=== PATIENT | male | born 1930 | race Caucasian/White ===

== ENCOUNTER 2017-01-03 13:26 | Inpatient (IN) | payer OTHER, MEDICARE ==
[~2017-01-03] VITALS: Ht 175.3 cm; Wt 85.3 kg
[~2017-01-03 13:26] MED LIST: ARICEPT10 M1 PO; ASPIRIN CHILDRE81 MG PO; CIPRO 500MG TA500 MG PO; CLARITIN10 MG PO; CLONAZEPAM1 M2 PO; COMBIVENT1 ARO PO; DEPAKOTE250 M1 PO; ELIQUIS2.5 MG PO; FLOMAX0.4 M1 PO; HYDRODIURIL 112.5 M1 PO; LISINOPRIL10 M1 PO; MOBIC15 MG PO; NASONEX17 GM NASB; TYLENOL ARTHRI650 M1 PO; ZOCOR20 M1 PO; [UNRECOGNIZED DRUG - OTHER] PO
--- NOTE | 2017-01-03 13:33 | ED GI/GU/ABDOMINAL COMPLAINT ---
History of Present Illness General Chief Complaint: General Adult Stated Complaint: BIBA LOW H&H AND +GUIAIC Source: patient Exam Limitations: no limitations Allergies Coded Allergies: NO KNOWN ALLERGIES (06/30/12) Triage Nurses Notes Reviewed? yes HPI: This patient is an 86-year-old male with past medical history including spinal stenosis and idiopathic hematuria who presented to the emergency department today brought in by ambulance from [facility] for evaluation of low H&H and blood in the stool. They performed a stool guaiac this morning as he had a dark bowel movement. It was heme positive. Hemoglobin was below 7. Hematocrit was below 20. They reported that the patient is pale and slightly lethargic. The patient is denying any focal pain. He denied any vomiting, nausea, abdominal pain, fevers, chills, chest pain, or difficulty breathing. The patient's daughter is currently at the bedside. She reported that this morning when they were palpating his abdomen he was not complaining of any pain. (RAUL JOHN,BARBARA) Vital Signs & Intake/Output Vital Signs & Intake/Output Vital Signs Date Time Temp Pulse Resp B/P B/P Pulse O2 O2 Flow FiO2 Mean Ox Delivery Rate 01/05 2246 98.5 69 20 170/60 95 Room Air 01/05 1935 178/78 01/05 1840 186/100 01/05 1831 166/80 01/05 1530 166/80 01/05 1428 97.8 70 20 180/80 98 Room Air 01/05 1402 180/80 01/05 0700 98.0 64 20 156/61 100 Room Air ED Intake and Output 01/05 0000 01/04 1200 Intake Total 1970 Output Total 1000 1400 Balance 970 -1400 Intake, Blood 350 Product Intake, IV 900 Intake, Oral 720 Number 0 Bowel Movements Output, Urine 1000 1400 Patient 188 lb Weight Reconcile Medications Acetaminophen (Tylenol Arthritis) 650 MG TABLET.ER 1 TAB PO BID PAIN ( Reported) Cetirizine HCl (Zyrtec) 10 MG TABLET 1 TAB PO DAILY ALLERGIES (Reported) Clonazepam 1 MG TABLET 1 TAB PO QPM RESTLESS LEGS (Reported) Clonazepam (Klonopin) 1 MG TABLET 1 TAB PO BEDTIME PRN seizure (Reported) Divalproex Sodium (Depakote) 250 MG TABLET.DR 1 TAB PO TID SEIZURES (Reported ) Donepezil HCl (Aricept) 10 MG TABLET 1 TAB PO QPM MEMORY (Reported) Gabapentin 300 MG CAPSULE 1 CAP PO BID UNKNOWN (Reported) Lidocaine 5 % ADH..PATCH 1 PAT TOP DAILY PAIN (Reported) Lisinopril 10 MG TABLET 1 TAB PO DAILY BP (Reported) Mometasone Furoate (Nasonex) 50 MCG SPRAY.PUMP 2 SPRAY NASB DAILY ALLERGIES ( Reported) Omeprazole 40 MG CAPSULE.DR 1 CAP PO BID GI prophylaxis Simvastatin (Zocor*) 20 MG TABLET 1 TAB PO QPM CHOLESTEROL (Reported) Tamsulosin HCl (Flomax) 0.4 MG CAP.ER.24H 1 CAP PO DAILY PROSTATE (Reported) (GALINDO SRINIVASAN,CEDRIC) Past History Travel History Traveled to [place] past 21 day No Medical History Any Pertinent Medical History? see below for history Cardiovascular: hypertension, hyperlipidemia Respiratory: pneumonia Renal: hematuria, recurrent urinary tract infections Musculoskeletal: spinal stenosis Other Medical Hx: His resident data she shows a seizure disorder, hypertension, degenerative joint disease, chronic low back pain, melanoma and squamous cell carcinoma, restless leg syndrome, high cholesterol, UTIs with sepsis, pneumonia History of MRSA: No History of VRE: No History of CDIFF: No Pneumonia Vaccine: 05/22/07 Influenza Vaccine: 05/29/13 Surgical History Surgical History: non-contributory Psychosocial History Who do you live with Patient/Self Services at Home Nursing What is your primary language Venezuelan Family History Family History, If Any: MOTHER FH: dementia FH: hypertension FATHER FH: hypertension BROTHER FH: seizures Hx Contributory? No (BARBARA CARTER PA-C) Review of Systems Review of Systems Constitutional: Reports: no symptoms. EENTM: Reports: no symptoms. Respiratory: Reports: no symptoms. Cardiovascular: Reports: no symptoms. GI: Reports: see HPI. Genitourinary: Reports: no symptoms. Musculoskeletal: Reports: see HPI. Skin: Reports: no symptoms. Neurological/Psychological: Reports: no symptoms. All Other Systems: Reviewed and Negative (BARBARA CARTER PA-C) Physical Exam Physical Exam Gastrointestinal: normal bowel sounds, soft, non-tender, no organomegaly, no rebound or guarding. No McBurney's point tenderness. Negative Lowe sign. No pulsatile mass, nondistended Comments: Well-developed well-nourished person in no acute distress HEENT: Normal EENT exam, head normocephalic, moist mucous membranes PERRLA bilaterally Neck: Supple, no lymphadenopathy Back: Normal inspection Cardiovascular: Regular rate and rhythm with no murmurs, rubs, or gallops Respiratory: No respiratory distress. Breath sounds clear to auscultation bilaterally with no wheezes, rales, or rhonchi Extremity: Normal equal pulses Neuro: Alert oriented x3, cranial nerves II through XII grossly intact. Skin: No appreciable rash on exposed skin, skin is warm and dry. pallor noted Psych: Mood and affect is normal, memory and judgment is normal. Core Measures ACS in differential dx? Yes Severe Sepsis Present: No Septic Shock Present: No (RAUL JOHN,BARBARA) Progress Differential Diagnosis: AAA, AMI, appendicitis, biliary colic, bowel obstruction , colon cancer, cholecystitis, diverticulitis, gastritis, hepatitis, ischemic bowel, inflamm bowel dis, pancreatitis, PUD/GERD, perforated viscous, UTI/pyelo Plan of Care: Orders Procedure Date/time Status Nothing by Mouth 01/03 D Active LACTIC ACID 01/03 1632 Active Patient Data 01/03 1433 Active BLOOD PRODUCT PICKUP 01/03 1430 Active Admit to inpatient 01/03 1427 Active Vital Signs 01/03 1427 Active Code Status 01/03 1427 Active LEUKOCYTE POOR (PACKED CELLS) 01/03 1413 Active MISTAKE 01/03 1338 Active BLOOD CULTURE 01/03 1332 Active TROPONIN LEVEL 01/03 1332 Complete PARTIAL THROMBOPLASTIN TIME 01/03 1332 Complete PROTHROMBIN TIME 01/03 1332 Complete LACTIC ACID 01/03 1332 Complete COMPREHENSIVE METABOLIC PANEL 01/03 1332 Complete CBC WITHOUT DIFFERENTIAL 01/03 1332 Complete EKG 01/03 1332 Active TYPE & SCREEN (NOT X-MATCH) 01/03 1332 Active Current Medications Sig/Alcon Start time Last Medication Dose Stop Time Status Admin Pantoprazole Sodium 40 MG ONCE ONE 01/03 1430 UNVr (Protonix) 01/03 1929 Sodium Chloride 100 ML (Normal Saline 0.9%) Sodium Chloride 1,000 ML BOLUS ONE 01/03 1345 AC 01/03 (Normal Saline 0.9%) 01/03 1444 1400 Laboratory Tests 01/03/17 1341: Anion Gap 11, Estimated GFR 44 L, BUN/Creatinine Ratio 40.7 H, Glucose 110 H, Lactic Acid 1.3, Calcium 9.1, Total Bilirubin 0.2, AST 14 L, ALT 14 L, Alkaline Phosphatase 59, Troponin I 0.04, Total Protein 6.1 L, Albumin 3.1 L, Globulin 3.0, Albumin/Globulin Ratio 1.0 L, PT 12.7 H, INR 1.21 H, APTT 42 H , CBC w Diff NO MAN DIFF REQ, RBC 2.28 L, MCV 92.8, MCH 31.4 H, RDW 14.7 H, MPV 7.8, Gran % 58.1, Lymphocytes % 23.3, Monocytes % 13.9 H, Eosinophils % 3.8 , Basophils % 0.9, Absolute Granulocytes 3.8, Absolute Lymphocytes 1.5, Absolute Monocytes 0.9 H, Absolute Eosinophils 0.3, Absolute Basophils 0.1, PUBS MCHC 33.8 Microbiology 01/03 1425 BLOOD: Blood Culture - RECD 01/03 1405 BLOOD: Blood Culture - RECD Patient seen and exained with VIJAY Carter. Low H/H, hemodynamically stable. Will admit to general medical floor for transfusion. (GALINDO SRINIVASAN,CEDRIC) Diagnostic Imaging: Viewed by Me: Radiology Read. Discussed w/RAD: Radiology Read. CXR Impression: PATIENT: KAEL ECHEVARRIA PRESENT AGE: 86 PATIENT ACCOUNT NO: [id number] : 31 LOCATION: [facility] ORDERING PHYSICIAN: BARBARA CARTER PA-C SERVICE DATE: 01/03/17 EXAM TYPE: RAD - XRY- PORTABLE CHEST XRAY EXAMINATION: XR PORTABLE CHEST CLINICAL INFORMATION: Weakness; clinical question of pneumonia. COMPARISON: Prior chest radiographs, most recently 04/28/2014. TECHNIQUE: Portable frontal view of the chest was obtained. FINDINGS: The heart, great vessels, pulmonary vasculature and mediastinum are stable. There is atherosclerotic change of the aortic knob. There is stable mild to moderate right base linear scar/subsegmental atelectasis. No new infiltrate, effusion or pneumothorax is seen. There is no acute osseous abnormality. IMPRESSION: 1. No active cardiopulmonary disease. There is no significant interim change. 2. There is chronic mild to moderate right base linear scar/subsegmental atelectasis. DICTATED BY: KAEL BOND MD DATE/TIME DICTATED:01/03/171403 YARN SPOOLER:JOHANA DATE/TIME TRANSCRIBED:01/03/171403 CONFIDENTIAL, DO NOT COPY WITHOUT APPROPRIATE AUTHORIZATION. <Electronically signed in Other Vendor System> SIGNED BY: KAEL BOND MD 01/03/17 7871 Initial ED EKG: normal axis, normal intervals, normal sinus rhythm, no ST T wave changes, 65 bpm Comments: 01/03/2017 1:37:54 PM: Dr. Holman is currently at the patient's bedside for evaluation. 01/03/2017 4:44:09 PM: I discussed this patient with on-call cottage supervisor, Dr. Darden. He reported that he will be at the patient's bedside to consult. (BARBARA CARTER PA-C) Departure Departure Disposition: STILL A PATIENT Condition: Stable Clinical Impression Primary Impression: Upper GI bleed Secondary Impressions: Low hemoglobin and low hematocrit Referrals: YASMANI SRINIVASAN,MERY Barrera (PCP/Family) Departure Forms: Customer Survey General Discharge Information Admission Note Spoke With: KEM FARMER MD Documentation of Exam: Documentation of any treatments & extenuating circumstances including Concerns Regarding Discharge (functional status, medication knowledge or non-compliance, living conditions, etc.) that warrant an admission rather than observation: [ This patient is an 86-year-old male with a past medical history including atrial fibrillation, dementia, spinal stenosis, hypertension who presented to the emergency department today for evaluation of low H&H and dark tarry, heme positive stool. H&H 7 and 20 respectively. Pallor noted on physical examination. This patient will need to be admitted for blood transfusion, trend H&H, follow-up blood cultures, gastroenterology consultation, possible colonoscopy/endoscopy, serial troponin levels, serial EKGs, and close monitoring. Premature discharge could prove medically harmful.] (BARBARA CARTER PA-C) Departure Prescriptions: Current Visit Scripts Omeprazole 1 CAP PO BID 30 Days PA/MANAGER [employer] Co-Sign Statement Statement: ED Attending supervision documentation- [X] I saw and evaluated the patient. I have also reviewed all the pertinent lab results and diagnostic results. I agree with the findings and the plan of care as documented in the PA's/MANAGER COMPANY's documentation. [X] I have reviewed the ED Record and agree with the PA's/MANAGER COMPANY's documentation. [] Additions or exceptions (if any) to the PAs/MANAGER COMPANY's note and plan are summarized below: [] (GALINDO SRINIVASAN,CEDRIC)
[2017-01-03 13:50] LABS: ABSOLUTE GRANULOCYTE CT 3.8 /CUMM (1.4-6.5)
[2017-01-03] MEDS ORDERED: ZYRTEC10 M3 PO (13:54)
[2017-01-03] MEDS ORDERED: MOBIC15 M1 PO (13:55)
[2017-01-03] MEDS ORDERED: ELIQUIS2.5 M1 PO (13:57)
[2017-01-03] MEDS ORDERED: GABAPENTIN300 M2 PO (13:58)
[2017-01-03 13:59] LABS: ABSOLUTE BASOPHIL COUNT 0.1 /CUMM (0.0-0.2); ABSOLUTE EOSINOPHIL COUNT 0.3 /CUMM (0.0-0.7); ABSOLUTE LYMPH COUNT 1.5 /CUMM (1.2-3.4); ABSOLUTE MONOCYTE COUNT 0.9 /CUMM (0.10-0.60); BASOPHIL % 0.9 % (0.0-2.0); EOSINOPHIL % 3.8 % (0-5); GRANULOCYTE % 58.1 % (42.2-75.2); MEAN CORPUSCULAR HGB 31.4 PG (27.0-31.0); MEAN CORPUSCULAR HGB CONC 33.8 G/DL (33.0-37.0); MEAN CORPUSCULAR VOLUME 92.8 FL (80.0-94.0); MEAN PLATELET VOLUME 7.8 FL (7.4-10.4); PLATELET COUNT 138 /CUMM (130-400); RBC DISTRIBUTION WIDTH 14.7 % (11.5-14.5); RED BLOOD CELL CT 2.28 /CUMM (4.70-6.10); WHITE BLOOD CELL COUNT 6.6 /CUMM (4.8-10.8)
[2017-01-03 14:00] LABS: PT 12.7 SEC (9.4-12.5); PTT 42 SEC (25-37)
[2017-01-03] MEDS ORDERED: LIDOCAINE1 EACH TOP (14:02)
[2017-01-03 14:07] LABS: HEMATOCRIT 21.1 % (42-52)
--- NOTE | 2017-01-03 14:09 | RADIOLOGY REPORT ---
EXAMINATION: XR PORTABLE CHEST CLINICAL INFORMATION: Weakness; clinical question of pneumonia. COMPARISON: Prior chest radiographs, most recently 04/28/2014. TECHNIQUE: Portable frontal view of the chest was obtained. FINDINGS: The heart, great vessels, pulmonary vasculature and mediastinum are stable. There is atherosclerotic change of the aortic knob. There is stable mild to moderate right base linear scar/subsegmental atelectasis. No new infiltrate, effusion or pneumothorax is seen. There is no acute osseous abnormality. IMPRESSION: 1. No active cardiopulmonary disease. There is no significant interim change. 2. There is chronic mild to moderate right base linear scar/subsegmental atelectasis.
--- NOTE | 2017-01-03 16:19 | History & Physical ---
JULIUSRIDDHI 01/03/17 2609: General Information and HPI MD Statement: I have seen and personally examined KAEL ECHEVARRIA and documented this H&P. The patient is a 86 year old M who presented with a patient stated chief complaint of dark stools generalized weakness and malaise Source of Information: patient, family Exam Limitations: patient's age History of Present Illness: Patient is a 86-year-old gentleman with a past medical history significant for chronic back pain due to spinal stenosis(on mobic), recurrent urinary tract infections on chronic indwelling catheter since 2016, history of atrial fibrillation on Alquist 2.5 mg twice a day, history of recurrent falls, history of hypertension and hyperlipidemia, history of seizure disorder, presented to the ED from [facility] for the evaluation of generalized weakness /malaise with dark stools. According to the facility patient had a very dark 6 stool at around 4 AM today, stool guaiac was positive. Since morning patient has not been feeling well, remained on the bed most of the time. Also complained of weakness / malaise with lightheadedness. Denied any chest discomfort or trouble breathing palpitations.Denies any fever or chills. Patient denied any nausea vomiting diarrhea or constipation. The facility called the daughter and updated her. H&H checked at the facility was 6.7/19.7 .Afterwards they decided to bring the patient to the ED for further evaluation. Of the note patient was recently moved to [facility], since November 2016, as he was having recurrent falls at [facility]. Patient had a remote history of colonoscopy in mid , that was normal. Patient has been following with Dr. Thomas due to recurrent urinary tract infection, has a chronic indwelling Chavez catheter since 2016(replaced every month). In the ED, patient looked pale and lethargic, vitals were stable his H&H was found to be low: 7.1/21, received 1 unit of packed RBC and. Did not have any further episodes of dark stools/GI bleed. Allergies/Medications Allergies: Coded Allergies: NO KNOWN ALLERGIES (06/30/12) Home Med list Acetaminophen (Tylenol Arthritis) 650 MG TABLET.ER 1 TAB PO BID PAIN ( Reported) Apixaban (Eliquis) 2.5 MG TABLET 1 TAB PO BID BLOOD THINNER (Reported) Cetirizine HCl (Zyrtec) 10 MG TABLET 1 TAB PO DAILY ALLERGIES (Reported) Clonazepam (Klonopin) 1 MG TABLET 1 TAB PO BEDTIME PRN seizure (Reported) Clonazepam 1 MG TABLET 1 TAB PO QPM RESTLESS LEGS (Reported) Divalproex Sodium (Depakote) 250 MG TABLET.DR 1 TAB PO TID SEIZURES (Reported ) Donepezil HCl (Aricept) 10 MG TABLET 1 TAB PO QPM MEMORY (Reported) Gabapentin 300 MG CAPSULE 1 CAP PO BID UNKNOWN (Reported) Lidocaine 5 % ADH..PATCH 1 PAT TOP DAILY PAIN (Reported) Lisinopril 10 MG TABLET 1 TAB PO DAILY BP (Reported) Meloxicam (Mobic) 15 MG TABLET 1 TAB PO DAILY PAIN (Reported) Mometasone Furoate (Nasonex) 50 MCG SPRAY.PUMP 2 SPRAY NASB DAILY ALLERGIES ( Reported) Simvastatin (Zocor*) 20 MG TABLET 1 TAB PO QPM CHOLESTEROL (Reported) Tamsulosin HCl (Flomax) 0.4 MG CAP.ER.24H 1 CAP PO DAILY PROSTATE (Reported) Past History Travel History Traveled to [place] past 21 day No Medical History Neurological: dementia EENT: NONE Cardiovascular: AFIB, hypertension, hyperlipidemia Respiratory: pneumonia Gastrointestinal: NONE Hepatic: NONE Renal: benign prost hyperplasia, hematuria recurrent urinary tract infections Musculoskeletal: spinal stenosis Psychiatric: NONE Endocrine: NONE Blood Disorders: NONE Cancer(s): NONE Other Medical Hx: His resident data she shows a seizure disorder, hypertension, degenerative joint disease, chronic low back pain, melanoma and squamous cell carcinoma, restless leg syndrome, high cholesterol, UTIs with sepsis, pneumonia History of MRSA: No History of VRE: No History of CDIFF: No Pneumonia Vaccine: 05/22/07 Influenza Vaccine: 05/29/13 Surgical History Surgical History: non-contributory Past Family/Social History Family History Relations & Conditions if any MOTHER FH: dementia FH: hypertension FATHER FH: hypertension BROTHER FH: seizures Psychosocial History Services at Home: Nursing Review of Systems Review of Systems Constitutional: Reports: malaise, weakness. Denies: chills, diaphoresis, fever. EENTM: Denies: blurred vision, double vision, visual changes. Cardiovascular: Denies: see HPI, chest pain, edema, orthopena, palpitations. Respiratory: Denies: cough, hemoptysis, orthopnea, short of breath. GI: Denies: bloating, constipation, diarrhea, distention. Genitourinary: Denies: discharge, dysuria, frequency. Musculoskeletal: Denies: back pain, joint pain, joint swelling. Skin: Denies: change in skin color, change in hair/nails, dryness. Neurological/Psychological: Denies: ataxia, cognitive dysfunction, confusion. Hematologic/Endocrine: Denies: bruising, bleeding. Exam & Diagnostic Data Last 24 Hrs of Vital Signs/I&O Vital Signs Date Time Temp Pulse Resp B/P B/P Pulse O2 O2 Flow FiO2 Mean Ox Delivery Rate 01/03 1516 97.7 64 18 139/61 98 Room Air 01/03 1510 97.4 66 18 137/65 98 Room Air 01/03 1509 97.5 81 18 153/67 98 Room Air 01/03 1428 98 Room Air 01/03 1334 97.0 67 20 133/63 99 Room Air Intake & Output 01/03 1600 01/03 0800 01/03 0000 Intake Total Output Total 20 Balance -20 Output, Urine 20 Patient 170 lb Weight Weight Reported by Patient Measurement Method Physical Exam General Appearance Alert, Oriented X3 Skin No Rashes Skin Temp/Moisture Exam: Warm/Dry Sepsis Skin Exam (color): Pale HEENT Atraumatic, PERRLA, EOMI Neck Supple, No JVD Lymphatic Axillary nl, Cervical nl Cardiovascular Regular Rate, Normal S1, Normal S2 Lungs Clear to Auscultation, Normal Air Movement Abdomen Normal Bowel Sounds, Soft Neurological Normal Gait, Normal Speech Extremities No Clubbing, No Cyanosis, No Edema Vascular Normal Pulses, Pulses Symmetrical Last 24 Hrs of Labs/Ranjeet: Laboratory Tests 01/03/17 1632: Lactic Acid Cancelled 01/03/17 1341: Anion Gap 11, Estimated GFR 44 L, BUN/Creatinine Ratio 40.7 H, Glucose 110 H, Lactic Acid 1.3, Calcium 9.1, Total Bilirubin 0.2, AST 14 L, ALT 14 L, Alkaline Phosphatase 59, Troponin I 0.04, Total Protein 6.1 L, Albumin 3.1 L, Globulin 3.0, Albumin/Globulin Ratio 1.0 L, PT 12.7 H, INR 1.21 H, APTT 42 H , CBC w Diff NO MAN DIFF REQ, RBC 2.28 L, MCV 92.8, MCH 31.4 H, RDW 14.7 H, MPV 7.8, Gran % 58.1, Lymphocytes % 23.3, Monocytes % 13.9 H, Eosinophils % 3.8 , Basophils % 0.9, Absolute Granulocytes 3.8, Absolute Lymphocytes 1.5, Absolute Monocytes 0.9 H, Absolute Eosinophils 0.3, Absolute Basophils 0.1, PUBS MCHC 33.8 Microbiology 01/03 1425 BLOOD: Blood Culture - RECD 01/03 1405 BLOOD: Blood Culture - RECD Diagnostic Data EKG Results EKG: Normal sinus rhythm heart rate in the range of 60s, NJ prolongation 180, QTC 437, with blood axis deviation. CXR Results :No active cardiopulmonary disease. There is no significant interim change. There is chronic mild to moderate right base linear scar/subsegmental atelectasis Assessment/Plan Assessment: And is she is in 1 This is a 86-year-old gentleman with a past medical history significant for spinal stenosis, recurrent urinary tract infections on chronic indwelling catheter since 2016, history of atrial fibrillation on Alquist 2.5 mg twice a day, history of recurrent falls, history of hypertension and hyperlipidemia, history of seizure disorder, presented to the ED from [facility] for the evaluation of generalized weakness /malaise with dark stools. In the ED, patient looked pale and lethargic, vitals were stable his H&H was found to be low: 7.1/21, received 1 unit of packed RBC and. Did not have any further episodes of dark stools/GI bleed. Vitals on admission temperature 97.0, pulse 67, respiratory rate 20, blood pressure 133/63 on room air Pertinent labs on admission: Normal WBC count ,H&H low(7.1/21),elevated BUN/creatinine 61/1.5, INR 1.21, APTT 42. Assessment and plan: 1. Acute on chronic blood loss anemia due to probable upper GI bleed(hx of mobic use?gastritis/ulcer): * As patient appears clinically stable, without any active signs of complete Will admit the patient to the GenMed floor * GI consult with Dr. Alma SRINIVASAN has been obtained as per recommendations we'll start the patient on IV Protonix drip. * We will do serial CBC every 8 hours * Watch for any active signs of bleed * Keep the patient nothing by mouth for now * Continue with gentle hydration * Keep the hemoglobin above 8. * Will notify GI in case of overt signs of bleed. * hold antihypertensives for now, watch for any hemodynamic instability. * Hold home dose of mobic * Patient will likely go for endoscopy in the morning. 2. History of atrial fibrillation(currently in sinus rhythm) * Will hold elliquis for now. 3. History of seizure disorders * Continue home medications including Depakote and gabapentin. 4. History of hypertension and lipidemia: * continue with statins. * Hold antihypertensives for now. 5. History of recurrent urinary tract infection on chronic indwelling catheter * Consider starting Flomax in the morning. 6.history of Alzheimer's disease * Continue home dose of Aricept Mild to moderate pain controlled with Tylenol and severe pain controlled with oxycodone DVT prophylaxis Alps Patient is DNR/DNI as per living will As Ranked By This Provider Problem List: 1. Upper GI bleed 2. Fall 3. Dementia Core Measures/Miscellaneous Acute Coronary Syndrome ACS Diagnosis: No Cerebrovascular Accident CVA/TIA Diagnosis: No Congestive Heart Failure CHF Diagnosis: No Venous Thromboembolism VTE Risk Factors: Acute medical illness, Age > 40 No [facility] VTE prophylaxis d/t: VTE low risk, No contraindications No VTE Pharm Prophylaxis d/t: VTE low risk, No contraindications VTE Diagnosis: No VTE Type: NONE VTE Confirmed by (Test): NONE Severe Sepsis Severe Sepsis Present: No Septic Shock Septic Shock Present: No Miscellaneous Documentation Attending Case Discussed With: SARAH CRUZ M.D Primary Care Physician: MERY GRUBER MD Patient sees these Specialists Dr. Alma SRINIVASAN. Level of Patient Care: General Medicine Resident Review Statement Resident Statement: examined this patient, discussed with music industry intern, agreed with music industry intern SARAH CRUZ MD 01/03/17 2220: Attending MD Review Statement Attending Statement Attending MD Statement: examined this patient, discuss w/resident/PA/DRAWING SUPERVISOR, agreed w/resident/PA/DRAWING SUPERVISOR, discussed with family, reviewed EMR data (avail), discussed with nursing, amended to note Attending Assessment/Plan: Patient seen and examined. Reviewed and agree with history of physical is documented by the resident above. Presented presentation is consistent with acute blood loss anemia secondary to gastrointestinal bleeding likely from upper gastrointestinal source. Is currently hemodynamically stable. He is alert and oriented 3 with periods of confusion which is baseline according to his family. He denies any abdominal pain. His abdomen is soft and nontender with normal bowel sounds. Recommendations: -Admit to the inpatient general medical service. -Hold anticoagulation and notify the cardiology service. -Following transfusion of PRBC repeat hemoglobin level. -He Is scheduled for upper endoscopy tomorrow with the gastroenterology service. -His renal function appears close to baseline. Will monitor closely. -Keep nothing by mouth. Gentle hydration overnight.-
--- NOTE | 2017-01-03 17:36 | Cons- Gastroenterology ---
General Information and HPI Consulting Request Date of Consult: 01/03/17 Requested By: SARAH CRUZ M.D Reason for Consult: Anemia, reported melena (currently brown stool, OB-positive), in an elderly male with OBS, on Eliquis & Mobic. Source of Information: patient, family (pt's dtr, Shirley & LIEN/JORDY,Luiz), old records, W10 Exam Limitations: unable to give history, not alert/orientated, confusion, dementia, poor historian History of Present Illness: 86 y/o male, HTN/HLD/OBS (on Aricept)/PAF on Eliquis (reportedly held on 2016; currently in NSR)/DNR DNI, history of mechanical falls, ? 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 He previously lived at [facility], but was moved to [facility] [place] in 11/2016, due to recurrent falls. He was BIBA to [facility] from [facility] 01/03, arriving at 1:26 p.m., for low H/H 6.7/19.7, respectively. The patient's stool appeared dark and was OB-positive at [facility] [place]. He does not take any iron or Pepto-Bismol. He appeared pale and more lethargic than normal, with some weakness & fatigue. Aside from Mobic, he denied any additional NSAIDs or aspirin. The patient is a poor historian & it is difficult for him to qualify or quantify the above. He is O x 1 (person). *Upon arrival to the ER, BP 133/63, P 67, R 20, T 97, O2 sat RA 99%. He is in the midst of his 1st unit PRBC. He denies any previous transfusions. He claimed he had a normal colonoscopy in [place], in the late . He has never had an EGD. Family history is unobtainable. He denied any cigarette smoking, but did admit to a rare beer. Although the patient is a poor historian, he denied any hematemesis, nausea, vomiting, GERD, odynophagia, dysphagia, early satiety, abdominal pain, chest pain, shortness of breath, diarrhea, constipation, obstipation, or rectal bleeding. His weight is stable and his appetite is good. He denied any gross hematuria or hemoptysis. He denied any fevers, chills, symptoms of URI or UTI, although he does have a chronic indwelling Chavez since 2017, replaced Q month. According to the W-10, there is no documentation of any recent abdominal trauma. He is currently NPO. I advised an IV Protonix bolus 80 mg , followed by an IV Protonix drip at 8 mg/hr. 12/20/2016: *WBC 7.3, H/H 11.1/32.5. normal MCV 92.6, normal RDW 14.5, PLT 197, BUN/Cr 33/1.6, GFR 41 01/03/2017: *Outpatient labs- WBC 6.7, H/H 6.7/19.7, MCV 93.2, RDW 14.9, PLT 122 , glucose 115, BUN/Cr 61/1.5, GFR 44, normal electrolytes, albumin 2.8, globulin 2.9, TBil 0.2, alk phos 55, AST 13, ALT 11 01/03/2017: *Admission labs- WBC 6.6, H/H 7.1/21.1, MCV 92.8, RDW 14.7, PLT 138, PT 12.7, INR 1.21, PTT 42, glucose 110, BUN/Cr 61/1.5, GFR 44, Na 142, K 5.o, HCO3 25, AG 11, nl lactate 1.3, Ca2+ 9.1, albumin 3.1, globulin 3.0, TBil 0.2, alk phos 59, AST 14, ALT 14, troponin .04. 01/03/2017: BC x 2- sent. 01/03/2017: EKG- NSR @ 65, borderline LAD, flat T in III & L. 01/03/2017: XR PORTABLE CHEST- 1. No active cardiopulmonary disease. There is no significant interim change. ASHD of aortic knob. 2. There is chronic mild to moderate right base linear scar/subsegmental atelectasis. Allergies/Medications Allergies: Coded Allergies: NO KNOWN ALLERGIES (06/30/12) Home Med List: Acetaminophen (Tylenol Arthritis) 650 MG TABLET.ER 1 TAB PO BID PAIN ( Reported) Apixaban (Eliquis) 2.5 MG TABLET 1 TAB PO BID BLOOD THINNER (Reported) Cetirizine HCl (Zyrtec) 10 MG TABLET 1 TAB PO DAILY ALLERGIES (Reported) Clonazepam (Klonopin) 1 MG TABLET 1 TAB PO BEDTIME PRN seizure (Reported) Clonazepam 1 MG TABLET 1 TAB PO QPM RESTLESS LEGS (Reported) Divalproex Sodium (Depakote) 250 MG TABLET.DR 1 TAB PO TID SEIZURES (Reported ) Donepezil HCl (Aricept) 10 MG TABLET 1 TAB PO QPM MEMORY (Reported) Gabapentin 300 MG CAPSULE 1 CAP PO BID UNKNOWN (Reported) Lidocaine 5 % ADH..PATCH 1 PAT TOP DAILY PAIN (Reported) Lisinopril 10 MG TABLET 1 TAB PO DAILY BP (Reported) Meloxicam (Mobic) 15 MG TABLET 1 TAB PO DAILY PAIN (Reported) Mometasone Furoate (Nasonex) 50 MCG SPRAY.PUMP 2 SPRAY NASB DAILY ALLERGIES ( Reported) Simvastatin (Zocor*) 20 MG TABLET 1 TAB PO QPM CHOLESTEROL (Reported) Tamsulosin HCl (Flomax) 0.4 MG CAP.ER.24H 1 CAP PO DAILY PROSTATE (Reported) Current Medications: Current Medications Sig/Alcon Start time Last Medication Dose Route Stop Time Status Admin Acetaminophen 650 MG Q6P PRN 01/03 1615 AC PO Acetaminophen 1,000 MG Q6P PRN 01/03 1615 AC IV Atorvastatin Calcium 10 MG 1700 01/04 1700 AC PO Clonazepam 1 MG QPM 01/03 2200 AC PO 01/10 2159 Divalproex Sodium 250 MG TID 01/03 1710 AC PO Donepezil HCl 10 MG DAILY 01/04 1000 AC PO Oxycodone HCl 5 MG Q6P PRN 01/03 1615 AC PO Pantoprazole Sodium 40 MG DAILY 01/04 1000 CAN IV Pantoprazole Sodium 40 MG Q5H 01/03 1645 DC Sodium Chloride 100 ML IV Pantoprazole Sodium 0 .STK-MED ONE 01/03 1613 DC IV Pantoprazole Sodium 40 MG ONCE ONE 01/03 1430 DC 01/03 Sodium Chloride 100 ML IV 01/03 1929 1621 Pantoprazole Sodium 0 .STK-MED ONE 01/03 1348 DC IV Pantoprazole Sodium 40 MG ONCE ONE 01/03 1345 DC 01/03 IV 01/03 1346 1400 Patient Medication 1 UNIT ONE NR 01/03 1515 AC Teaching ED 01/03 2115 Sodium Chloride 1,000 ML Q13H 01/03 1800 AC 01/03 IV 1910 Sodium Chloride 1,000 ML BOLUS ONE 01/03 1345 DC 01/03 IV 01/03 1444 1400 Past History Travel History Traveled to [place] past 21 day No Medical History Blood Transfusion Hx: No (not before 01/03/17) Neurological: dementia, restless leg syndrome, seizure EENT: hearing loss Cardiovascular: AFIB (PAF), hypertension, hyperlipidemia, syncope Respiratory: pneumonia Gastrointestinal: NONE Hepatic: NONE Renal: benign prost hyperplasia, chronic kidney disease (mild), hematuria recurrent urinary tract infections Musculoskeletal: degen joint disease, falls, spinal stenosis, right TKR Psychiatric: NONE Endocrine: NONE Blood Disorders: NONE Cancer(s): ? melanoma & SC Ca skin SEED ANALYST/Reproductive: NONE Other Medical Hx: His resident data she shows a seizure disorder, hypertension, degenerative joint disease, chronic low back pain, melanoma and squamous cell carcinoma, restless leg syndrome, high cholesterol, UTIs with sepsis, pneumonia Surgical History Surgical History: knee replacement (right), surgery for L- spinal stenosis Family History Relations & Conditions If Any: MOTHER FH: dementia FH: hypertension FATHER FH: hypertension BROTHER FH: seizures Psychosocial History Where Do You Live? Extended Care Facility ([facility] [place] since 11/2016) Who Do You Live With? ECF Services at Home: Nursing, indwelling Chavez Primary Language: Upper Sorbian Smoking Status: Never Smoked ETOH Use: occasional use (rare beer) Illicit Drug Use: denies illicit drug use Living Will? yes Power of Piano Teacher/HCP? yes Name of POA/HCP: Pt's Luiz Hay [phone] Other Social History: since 1998. Resident at [facility] [place] since 11/2016. Previously lived at [facility], but transferred due to falls. No cigarettes. Rare beer. No drugs. 2 dtrs- [facility] (Shirley Lopez & Kasey Pacheco). *Pt's POA is his Luiz Hay (cell- ; [facility] [phone]). Retired builder. Previously was in the [employer]. DNR-DNI (although okay to resuscitate during procedure) Functional Ability ADLs Independent: dressing. Needs Assist: eating, toileting, bathing. Ambulation: unknown IADLs Needs Assist: shopping, housework, finances, food prep, telephone, transportation, medication admin. Employment History Employment: Retired Profession/Employer: [employer] Review of Systems Review of Systems: Full 14 point review of systems otherwise difficult to obtain, but essentially negative (poor historian). Review of Systems Constitutional: Reports: weakness. Denies: chills, diaphoresis, fever, malaise, unexplained weight loss. EENTM: Reports: hearing changes. Denies: blurred vision, double vision, visual changes , eye pain, eye drainage, eye tearing, icterus, ear discharge, ear pain, ear redness, nasal congestion, epistaxis, nasal pain, throat pain, throat swelling, mouth pain, tooth pain. Cardiovascular: Denies: chest pain, edema, orthopena, palpitations, peripheral edema, syncope. Respiratory: Denies: cough, hemoptysis, orthopnea, short of breath, sputum production, stridor, wheezing. GI: Reports: melena (possibly). Denies: abdominal pain, bloating, constipation, diarrhea, distention, bowel incontinence, nausea, bloody stool, changes in stool , vomiting, steatorrhea. Genitourinary: Reports: frequency, hesitation. Denies: no symptoms (indwelling Chavez), discharge, dysuria, hematuria, nocturia, pain, urgency. Musculoskeletal: Reports: back pain, joint pain (right TKR/DJD). Denies: gout, joint swelling, muscle pain, muscle stiffness, neck pain. Skin: Denies: cysts, change in skin color, change in hair/nails, dryness, erythema, jaundice, lesions, lymphangitis, lumps, moles, rash. Neurological/Psychological: Reports: confusion, dementia, weakness. Denies: anxiety, ataxia, cognitive dysfunction, depressed, emotional problems, headache, numbness, paresthesia, pre -existing deficit, petit mal seizures, tingling, tremors, tonic-clonic seizures, unable to move lower ext, unable to move upper ext. Hematologic/Endocrine: Denies: bruising, bleeding, polyuria, polydipsia. Immunologic/Allergic: Denies: splenectomy, HIV/AIDS, lymphadenopathy. All Other Systems: Reviewed and Negative Exam & Diagnostic Data Vital Signs and I&O Vital Signs Date Time Temp Pulse Resp B/P B/P Pulse O2 O2 Flow FiO2 Mean Ox Delivery Rate 01/03 1516 97.7 64 18 139/61 98 Room Air 01/03 1510 97.4 66 18 137/65 98 Room Air 01/03 1509 97.5 81 18 153/67 98 Room Air 01/03 1428 98 Room Air 01/03 1334 97.0 67 20 133/63 99 Room Air Intake & Output 01/03 1600 01/03 0400 01/02 1600 01/02 0400 01/01 1600 01/01 0400 Intake Total Output Total 20 Balance -20 Output, Urine 20 Patient 170 lb Weight Weight Reported by Patient Measurement Method Physical Exam: Well-developed, well-nourished, pale elderly male, in no apparent distress. Sclera anicteric. Conjunctiva pale. Oropharynx clear. No oral thrush. No aphthous ulcers. There is no adenopathy, thyromegaly, or JVD. No peripheral stigmata of inflammatory bowel disease or chronic liver disease on exam. No spiders on the anterior chest wall. No gynecomastia. No CVA tenderness. Lungs: clear to A&P, with slight decreased BS at the right base. Heart exam: regular rate rhythm, S1 and S2, with soft flow murmur. Abdominal exam: normal bowel sounds, soft belly, nontender, without guarding or rebound. No mass. No organomegaly. No fluid shift. No pulsatile mass. No epigastric bruit. No abdominal scars. Digital rectal exam: (*done by myself in the ER 01/03/2017- brown stool, OB-positive, without melena or BRBPR. No mass. No external hemorrhoids or fissure. No perianal disease. Smooth enlarged prostate without nodule, but somewhat limited exam. Extremities: without C, C, or E. No palpable cords. + DJD. Post right TKR (healed scar). Postop scar L- spine. No palmar erythema. No Dupuytren's contractures. Distal pulses 1+ bilaterally. DTRs 1+ bilaterally. Alert and oriented x 1 (person). Pleasantly confused. Motor 5/5 B/ L. A detailed exam for peripheral neuropathy was deferred. No tremor. No asterixis. Results Pertinent Lab Results: Laboratory Tests 01/03 01/03 1632 1341 Chemistry Sodium (137 - 145 mmol/L) 142 Potassium (3.5 - 5.1 mmol/L) 5.0 Chloride (98 - 107 mmol/L) 105 Carbon Dioxide (22 - 30 mmol/L) 25 Anion Gap (5 - 16) 11 BUN (9 - 20 mg/dL) 61 H Creatinine (0.7 - 1.2 mg/dL) 1.5 H Estimated GFR (>60 ml/min) 44 L BUN/Creatinine Ratio (7 - 25 %) 40.7 H Glucose (65 - 99 mg/dL) 110 H Lactic Acid (0.7 - 2.1 mmol/L) Cancelled 1.3 Calcium (8.4 - 10.2 mg/dL) 9.1 Total Bilirubin (0.2 - 1.3 mg/dL) 0.2 AST (17 - 59 U/L) 14 L ALT (21 - 72 U/L) 14 L Alkaline Phosphatase (< 127 U/L) 59 Troponin I (<0.11 ng/ml) 0.04 Total Protein (6.3 - 8.2 g/dL) 6.1 L Albumin (3.5 - 5.0 g/dL) 3.1 L Globulin (1.9 - 4.2 gm/dL) 3.0 Albumin/Globulin Ratio (1.1 - 2.2 %) 1.0 L Coagulation PT (9.4 - 12.5 SEC) 12.7 H INR (0.90 - 1.17) 1.21 H APTT (25 - 37 SEC) 42 H Hematology CBC w Diff NO MAN DIFF REQ WBC (4.8 - 10.8 /CUMM) 6.6 RBC (4.70 - 6.10 /CUMM) 2.28 L Hgb (14.0 - 18.0 G/DL) 7.1 *L Hct (42 - 52 %) 21.1 L MCV (80.0 - 94.0 FL) 92.8 MCH (27.0 - 31.0 PG) 31.4 H RDW (11.5 - 14.5 %) 14.7 H Plt Count (130 - 400 /CUMM) 138 MPV (7.4 - 10.4 FL) 7.8 Gran % (42.2 - 75.2 %) 58.1 Lymphocytes % (20.5 - 51.1 %) 23.3 Monocytes % (1.7 - 9.3 %) 13.9 H Eosinophils % (0 - 5 %) 3.8 Basophils % (0.0 - 2.0 %) 0.9 Absolute Granulocytes (1.4 - 6.5 /CUMM) 3.8 Absolute Lymphocytes (1.2 - 3.4 /CUMM) 1.5 Absolute Monocytes (0.10 - 0.60 /CUMM) 0.9 H Absolute Eosinophils (0.0 - 0.7 /CUMM) 0.3 Absolute Basophils (0.0 - 0.2 /CUMM) 0.1 PUBS MCHC (33.0 - 37.0 G/DL) 33.8 Imaging/Other Studies: 01/03/2017: EKG- NSR @ 65, borderline LAD, flat T in III & L. 01/03/2017: XR PORTABLE CHEST- 1. No active cardiopulmonary disease. There is no significant interim change. ASHD of aortic knob. 2. There is chronic mild to moderate right base linear scar/subsegmental atelectasis. Assessment/Plan Assessment/Recommendations: 86 y/o male, HTN/HLD/OBS (on Aricept)/PAF on Eliquis (reportedly held on 2016; currently in NSR)/DNR DNI, history of mechanical falls, ? 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 He previously lived at [facility], but was moved to [facility] [place] in 11/2016, due to recurrent falls. [facility] from [facility] 01/03, arriving at 1:26 p.m., for low H/H 6.7/19.7, respectively. The patient's stool appeared dark and was OB-positive at [facility] [place]. He does not take any iron or Pepto-Bismol. He appeared pale and more lethargic than normal, with some weakness & fatigue. Aside from Mobic, he denied any additional NSAIDs or aspirin. The patient is a poor historian & it is difficult for him to qualify or quantify the above. He is O x 1 (person). *Upon arrival to the ER, BP 133/63, P 67, R 20, T 97, O2 sat RA 99%. He is in the midst of his 1st unit PRBC. He denies any previous transfusions. He claimed he had a normal colonoscopy in [place], in the late . He has never had an EGD. Family history is unobtainable. He denied any cigarette smoking, but did admit to a rare beer. Although the patient is a poor historian, he denied any hematemesis, nausea, vomiting, GERD, odynophagia, dysphagia, early satiety, abdominal pain, chest pain, shortness of breath, diarrhea, constipation, obstipation, or rectal bleeding. His weight is stable and his appetite is good. He denied any gross hematuria or hemoptysis. He denied any fevers, chills, symptoms of URI or UTI, although he does have a chronic indwelling Chavez since 2017, replaced Q month. According to the W-10, there is no documentation of any recent abdominal trauma. He is currently NPO. I advised an IV Protonix bolus 80 mg , followed by an IV Protonix drip at 8 mg/hr. 12/20/2016: *WBC 7.3, H/H 11.1/32.5. normal MCV 92.6, normal RDW 14.5, PLT 197, BUN/Cr 33/1.6, GFR 41 01/03/2017: *Outpatient labs- WBC 6.7, H/H 6.7/19.7, MCV 93.2, RDW 14.9, PLT 122 , glucose 115, BUN/Cr 61/1.5, GFR 44, normal electrolytes, albumin 2.8, globulin 2.9, TBil 0.2, alk phos 55, AST 13, ALT 11 01/03/2017: *Admission labs- WBC 6.6, H/H 7.1/21.1, MCV 92.8, RDW 14.7, PLT 138, PT 12.7, INR 1.21, PTT 42, glucose 110, BUN/Cr 61/1.5, GFR 44, Na 142, K 5.o, HCO3 25, AG 11, nl lactate 1.3, Ca2+ 9.1, albumin 3.1, globulin 3.0, TBil 0.2, alk phos 59, AST 14, ALT 14, troponin .04. 01/03/2017: BC x 2- sent. 01/03/2017: EKG- NSR @ 65, borderline LAD, flat T in III & L. 01/03/2017: XR PORTABLE CHEST- 1. No active cardiopulmonary disease. There is no significant interim change. ASHD of aortic knob. 2. There is chronic mild to moderate right base linear scar/subsegmental atelectasis. *Clinically, most likely, the patient had an UGI bleed (above the Ligament of Treitz), with elevated BUN/Cr ratio & history of melena (currently brown, OB- positive on my 01/03/2017: digital exam). Eliquis was held as of 01/03/2017. The Mobic use is noted. Non-smoker. Rare beer. There is nothing by history to suggest cirrhosis, although he does have borderline thrombocytopenia. There is a questionable history of melanoma & SC Ca skin (doubt met). Rule out PUD vs. angiodysplasia vs. Dieulafoy. Doubt neoplasm. *Additionally, one might have to reconsider (if at all), resuming A/C therapy in a patient with OBS & a history of mechanical falls & ? syncope. He has PAF & is currently in NSR. I had a long discussion with the patient's daughter, Shirley Lopez, who redirected me to her (the patient's S-I-L), Luiz Lopez, who is the patient's POA. I called him on his cell at . The patient is DNR/ DNI, but can be resuscitated and/or intubated if needed, during a procedure. * The risks and benefits of EGD were discussed with him, and he wishes to proceed. Witnessed telephone informed consent for EGD was obtained from the patient's POA, Luiz Lopez, on 01/03/2017. If the EGD is negative, will discuss prep for colonoscopy. The patient is being admitted to General Medicine as per the ER , as he is hemodynamically stable. SUGGEST: T&C 4u PRBC. Check CBC Q8h for now. Slowly transfuse to Hgb > 8, as probable underlying ASHD with PAF. Supplemental O2 as needed. IV Protonix 80 mg IV bolus, followed by IV Protonix drip at 8 mg/hr. DVT prophylaxis with mechanical ALPS. NPO for now, except may take medications if needed, with tiny sip of H2O. No NSAIDs (hold Mobic). Continue to hold Eliquis. Advise cardiology input regarding issue of ? eventual resumption of A/C therapy, after EGD. For tentative EGD after transfusions, on 01/04/2017. Please call GI sooner, if pateint actively bleeds. If EGD negative, will speak with POA regarding colonoscopy. The patient's POA was given my office number. The above was discussed with the medical house staff. Further recommendations to follow, depending on clinical course. Problem List: 1. Melena 2. Anemia 3. GI bleed 4. NSAID-associated gastropathy 5. Anticoagulant adverse reaction 6. Dementia Copies To: MARIA DOLORES CRUZ M.D, MD,BEA GRUBER MD,MERY Barrera; JEIMY SRINIVASAN, PAULA Consult Acknowledgment - Thank you for your consult request.
[2017-01-03] MEDS ORDERED: KLONOPIN1 M1 PO (17:43)
[2017-01-03 21:17] LABS: ABSOLUTE BASOPHIL COUNT 0 /CUMM (0.0-0.2); ABSOLUTE EOSINOPHIL COUNT 0.5 /CUMM (0.0-0.7); ABSOLUTE LYMPH COUNT 2.1 /CUMM (1.2-3.4); ABSOLUTE MONOCYTE COUNT 1.1 /CUMM (0.10-0.60); BASOPHIL % 0.6 % (0.0-2.0); EOSINOPHIL % 6.1 % (0-5); GRANULOCYTE % 52.5 % (42.2-75.2); HEMATOCRIT 23.7 % (42-52); MEAN CORPUSCULAR HGB 31.5 PG (27.0-31.0); MEAN CORPUSCULAR HGB CONC 34.2 G/DL (33.0-37.0); MEAN PLATELET VOLUME 7.4 FL (7.4-10.4); RBC DISTRIBUTION WIDTH 15.9 % (11.5-14.5); RED BLOOD CELL CT 2.57 /CUMM (4.70-6.10); WHITE BLOOD CELL COUNT 7.7 /CUMM (4.8-10.8)
[2017-01-03 21:25] LABS: PLATELET COUNT 118 /CUMM (130-400)
--- NOTE | 2017-01-03 22:21 | Admission Certification ---
Admission Certification Certification Statement - As attending physician, I certify that at the time of - admission, based on clinical presentation, severity of - symptoms, need for further diagnostic testing and - therapeutic interventions, and risk of adverse outcomes - without in-hospital treatment, in my clinical assessment, - this patient requires an acute hospital stay for a minimum - of two nights or longer. I have also considered psychsocial - factors such as support system, advanced age, financial - issues, cognitive issues, and failed out-patient treatments, - past re-admission history, safety of patient, and lack of - compliance as applicable. Specific rationale supporting this admission is: Admission is required from close monitoring of his hemoglobin levels, transfusion of blood as needed and upper endoscopy
[2017-01-04 01:43] VITALS: BP 122/68
[2017-01-04 05:54] VITALS: BP 118/64
--- NOTE | 2017-01-04 07:47 | PN- Gastroenterology ---
Assessment/Plan Assessment/Recommendations: 86 y/o male, HTN/HLD/OBS (on Aricept)/PAF on Eliquis (reportedly held on 2016; currently in NSR)/DNR DNI, history of mechanical falls, ? 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 He previously lived at [facility], but was moved to [facility] in 11/2016, due to recurrent falls. He was BIBA to [facility] from [facility] 01/03, arriving at 1:26 p.m., for low H/H 6.7/19.7, respectively. The patient's stool appeared dark and was OB-positive at [facility]. He does not take any iron or Pepto-Bismol. He appeared pale and more lethargic than normal, with some weakness & fatigue. Aside from Mobic, he denied any additional NSAIDs or aspirin. The patient is a poor historian & it is difficult for him to qualify or quantify the above. He is O x 1 (person). *Upon arrival to the ER, BP 133/63, P 67, R 20, T 97, O2 sat RA 99%. He is in the midst of his 1st unit PRBC. He denies any previous transfusions. He claimed he had a normal colonoscopy in [place], [place], in the late . He has never had an EGD. Family history is unobtainable. He denied any cigarette smoking, but did admit to a rare beer. Although the patient is a poor historian, he denied any hematemesis, nausea, vomiting, GERD, odynophagia, dysphagia, early satiety, abdominal pain, chest pain, shortness of breath, diarrhea, constipation, obstipation, or rectal bleeding. His weight is stable and his appetite is good. He denied any gross hematuria or hemoptysis. He denied any fevers, chills, symptoms of URI or UTI, although he does have a chronic indwelling Chavez since 2016, replaced Q month. According to the W-10, there is no documentation of any recent abdominal trauma. He is currently NPO. I advised an IV Protonix bolus 80 mg , followed by an IV Protonix drip at 8 mg/hr. 12/20/2016: *WBC 7.3, H/H 11.1/32.5. normal MCV 92.6, normal RDW 14.5, PLT 197, BUN/Cr 33/1.6, GFR 41 01/03/2017: *Outpatient labs- WBC 6.7, H/H 6.7/19.7, MCV 93.2, RDW 14.9, PLT 122 , glucose 115, BUN/Cr 61/1.5, GFR 44, normal electrolytes, albumin 2.8, globulin 2.9, TBil 0.2, alk phos 55, AST 13, ALT 11 01/03/2017: *Admission labs- WBC 6.6, H/H 7.1/21.1, MCV 92.8, RDW 14.7, PLT 138, PT 12.7, INR 1.21, PTT 42, glucose 110, BUN/Cr 61/1.5, GFR 44, Na 142, K 5.o, HCO3 25, AG 11, nl lactate 1.3, Ca2+ 9.1, albumin 3.1, globulin 3.0, TBil 0.2, alk phos 59, AST 14, ALT 14, troponin .04. 01/03/2017: BC x 2- sent. 01/03/2017: EKG- NSR @ 65, borderline LAD, flat T in III & L. 01/03/2017: XR PORTABLE CHEST- 1. No active cardiopulmonary disease. There is no significant interim change. ASHD of aortic knob. 2. There is chronic mild to moderate right base linear scar/subsegmental atelectasis. *Clinically, most likely, the patient had an UGI bleed (above the Ligament of Treitz), with elevated BUN/Cr ratio & history of melena (currently brown, OB- positive on my 01/03/2017: digital exam). Eliquis was held as of 01/03/2017. The Mobic use is noted. Non-smoker. Rare beer. There is nothing by history to suggest cirrhosis, although he does have borderline thrombocytopenia. There is a questionable history of melanoma & SC Ca skin (doubt met). Rule out PUD vs. angiodysplasia vs. Dieulafoy. Doubt neoplasm. *Additionally, one might have to reconsider (if at all), resuming A/C therapy in a patient with OBS & a history of mechanical falls & ? syncope. He has PAF & is currently in NSR. I had a long discussion with the patient's daughter, Shirley Lopez, who redirected me to her (the patient's S-I-L), Luiz Lopez, who is the patient's POA. I called him on his cell at . The patient is DNR/ DNI, but can be resuscitated and/or intubated if needed, during a procedure. * The risks and benefits of EGD were discussed with him, and he wishes to proceed. Witnessed telephone informed consent for EGD was obtained from the patient's POA, Luiz Lopez, on 01/03/2017. If the EGD is negative, will discuss prep for colonoscopy. The patient is being admitted to General Medicine as per the ER , as he is hemodynamically stable. *As of 01/04/2017, the patient remains pleasantly demented. He has no complaints & is hemodynamically stable. He received 1 unit PRBC. He remains on a Protonix drip. He is NPO for EGD. There has been no overt GI bleeding or melena overnight. *Eliquis has been held as of 01/03/2017, as has Mobic. He denies any chest pain, shortness of breath, or abdominal pain.It is difficult to get any further history from him. SUGGEST: T&C 4u PRBC. Check CBC Q8h for now. Slowly transfuse to Hgb > 8, as probable underlying ASHD with PAF. Supplemental O2 as needed. 2 large bore IVs. IV Protonix 80 mg IV bolus (done), followed by IV Protonix drip at 8 mg/hr. DVT prophylaxis with mechanical ALPS. NPO for now, except may take medications if needed, with tiny sip of H2O. No NSAIDs (*hold Mobic). *Continue to hold Eliquis. *Advise cardiology input regarding issue of ? eventual resumption of A/ C therapy, after EGD. For tentative EGD after transfusions, later today on 01/04/2017. Please call GI sooner, if pateint actively bleeds. If EGD negative, will speak with POA regarding colonoscopy. The patient's POA was given my office number. The above was previously discussed with the medical house staff, and again with the jane's RN today. Further recommendations to follow, depending on clinical course. Problem List: 1. Melena 2. Anemia 3. GI bleed 4. NSAID-associated gastropathy 5. Anticoagulant adverse reaction 6. Dementia Subjective Subjective: *As of 01/04/2017, the patient remains pleasantly demented. He has no complaints & is hemodynamically stable. He received 1 unit PRBC. He remains on a Protonix drip. He is NPO for EGD. There has been no overt GI bleeding or melena overnight. Eliquis has been held as of 01/03/2017, as has Sarath. He denies any chest pain, shortness of breath, or abdominal pain.It is difficult to get any further history from him. Review of Systems: Full 14 point review of systems otherwise difficult to obtain, but essentially negative (poor historian). Review of Systems Constitutional: Reports: weakness- improving. Denies: chills, diaphoresis, fever, malaise, unexplained weight loss. EENTM: Reports: hearing changes. Denies: blurred vision, double vision, visual changes, eye pain, eye drainage, eye tearing, icterus, ear discharge, ear pain, ear redness, nasal congestion, epistaxis, nasal pain, throat pain, throat swelling, mouth pain, tooth pain. Cardiovascular: Denies: chest pain, edema, orthopena, palpitations, peripheral edema, syncope. Respiratory: Denies: cough, hemoptysis, orthopnea, short of breath, sputum production, stridor, wheezing. GI: Reports: melena (possibly as outpatient). Denies: abdominal pain, bloating, constipation, diarrhea, distention, bowel incontinence, nausea, bloody stool, changes in stool, vomiting, steatorrhea. Genitourinary: Reports: frequency, hesitation. Denies: no symptoms (indwelling Chavez), discharge, dysuria, hematuria, nocturia, pain, urgency. Musculoskeletal: Reports: back pain, joint pain (right TKR/DJD). Denies: gout, joint swelling, muscle pain, muscle stiffness, neck pain. Skin: Denies: cysts, change in skin color, change in hair/nails, dryness, erythema, jaundice, lesions, lymphangitis, lumps, moles, rash. Neurological/Psychological: Reports: confusion, dementia; weakness- improving. Denies: anxiety, ataxia, cognitive dysfunction, depressed, emotional problems, headache, numbness, paresthesia, pre-existing deficit, petit mal seizures, tingling, tremors, tonic-clonic seizures, unable to move lower ext, unable to move upper ext. Hematologic/Endocrine: Denies: bruising, bleeding, polyuria, polydipsia. Immunologic/Allergic: Denies: splenectomy, HIV/AIDS, lymphadenopathy. All Other Systems: Reviewed and Negative Objective Vital Signs and I&Os Vital Signs Date Time Temp Pulse Resp B/P B/P Pulse O2 O2 Flow FiO2 Mean Ox Delivery Rate 01/04 0554 97.5 64 20 118/64 96 Room Air 01/04 0143 98.0 59 20 122/68 96 Room Air 01/04 0050 98.2 63 16 136/61 95 Room Air 01/03 2205 98.9 71 20 152/68 96 Room Air / 1516 97.7 64 18 139/61 98 Room Air / 1510 97.4 66 18 137/65 98 Room Air / 1509 97.5 81 18 153/67 98 Room Air /08 1428 98 Room Air / 1334 97.0 67 20 133/63 99 Room Air Intake & Output 01/04 1600 01/04 0400 01/03 1600 01/03 0400 01/02 1600 01/02 0400 Intake Total Output Total 450 950 20 Balance -450 -950 -20 Output, Urine 450 950 20 Patient 188 lb 170 lb Weight Weight Reported by Patient Measurement Method Physical Exam: Well-developed, well-nourished, slightly less pale elderly male, in no apparent distress. Sclera anicteric. Conjunctiva less pale. Oropharynx clear. No oral thrush. No aphthous ulcers. There is no adenopathy, thyromegaly, or JVD. No peripheral stigmata of inflammatory bowel disease or chronic liver disease on exam. No spiders on the anterior chest wall. No gynecomastia. No CVA tenderness. Lungs: clear to A&P, with slight decreased BS at the right base. Heart exam: regular rate rhythm, S1 and S2, with soft flow murmur. Abdominal exam: normal bowel sounds, soft belly, nontender, without guarding or rebound. No mass. No organomegaly. No fluid shift. No pulsatile mass. No epigastric bruit. No abdominal scars. Digital rectal exam: (*done by myself in the ER 01/03/2017- brown stool, OB-positive, without melena or BRBPR. No mass. No external hemorrhoids or fissure. No perianal disease. Smooth enlarged prostate without nodule, but somewhat limited exam. Extremities: without C, C, or E. No palpable cords. + DJD. Post right TKR (healed scar). Postop scar L- spine. No palmar erythema. No Dupuytren's contractures. Distal pulses 1+ bilaterally. DTRs 1+ bilaterally. Alert and oriented x 1 (person). Pleasantly confused. Motor 5/5 B/ L. A detailed exam for peripheral neuropathy was deferred. No tremor. No asterixis. Current Medications: Current Medications Sig/Alcon Start time Last Medication Dose Route Stop Time Status Admin Acetaminophen 650 MG Q6P PRN 01/03 1615 AC PO Acetaminophen 1,000 MG Q6P PRN 01/03 1615 AC IV Atorvastatin Calcium 10 MG 1700 01/04 1700 AC PO Clonazepam 0 .STK-MED ONE 01/03 2204 DC PO Clonazepam 1 MG QPM 01/03 2200 AC 05/08 PO 01/10 2159 2204 Divalproex Sodium 250 MG TID 01/03 1710 AC 01/03 PO 1956 Donepezil HCl 10 MG DAILY 01/04 1000 AC PO Oxycodone HCl 5 MG Q6P PRN 01/03 1615 AC PO Pantoprazole Sodium 40 MG DAILY 01/04 1000 CAN IV Pantoprazole Sodium 40 MG Q5H 01/03 2345 AC 01/04 Sodium Chloride 100 ML IV 0652 Pantoprazole Sodium 40 MG Q5H 01/03 1645 DC Sodium Chloride 100 ML IV Pantoprazole Sodium 0 .STK-MED ONE 01/03 1613 DC IV Pantoprazole Sodium 40 MG ONCE ONE 01/03 1430 DC 01/03 Sodium Chloride 100 ML IV 01/03 1929 1621 Pantoprazole Sodium 0 .STK-MED ONE 01/03 1348 DC IV Pantoprazole Sodium 40 MG ONCE ONE 01/03 1345 DC 01/03 IV 01/03 1346 1400 Patient Medication 1 UNIT ONE NR 01/03 1515 DC Teaching ED 01/03 2115 Sodium Chloride 1,000 ML Q13H 01/03 1800 AC 01/03 IV 1910 Sodium Chloride 1,000 ML BOLUS ONE 01/03 1345 DC 01/03 IV 01/03 1444 1400 Results Pertinent Lab Results: Laboratory Tests 01/04 01/03 01/03 0630 5 1632 Chemistry Sodium (137 - 145 mmol/L) 143 Potassium (3.5 - 5.1 mmol/L) 4.9 Chloride (98 - 107 mmol/L) 112 H Carbon Dioxide (22 - 30 mmol/L) 24 Anion Gap (5 - 16) 7 BUN (9 - 20 mg/dL) 46 H Creatinine (0.7 - 1.2 mg/dL) 1.4 H Estimated GFR (>60 ml/min) 48 L BUN/Creatinine Ratio (7 - 25 %) 32.9 H Lactic Acid Cancelled Hematology CBC w Diff Pending NO MAN DIFF REQ WBC (4.8 - 10.8 /CUMM) Pending 7.7 RBC (4.70 - 6.10 /CUMM) Pending 2.57 L Hgb (14.0 - 18.0 G/DL) Pending 8.1 L Hct (42 - 52 %) Pending 23.7 L MCV (80.0 - 94.0 FL) Pending 92.0 MCH (27.0 - 31.0 PG) Pending 31.5 H RDW (11.5 - 14.5 %) Pending 15.9 H Plt Count (130 - 400 /CUMM) Pending 118 L MPV (7.4 - 10.4 FL) Pending 7.4 Gran % (42.2 - 75.2 %) 52.5 Lymphocytes % (20.5 - 51.1 %) 26.9 Monocytes % (1.7 - 9.3 %) 13.9 H Eosinophils % (0 - 5 %) 6.1 H Basophils % (0.0 - 2.0 %) 0.6 Absolute Granulocytes (1.4 - 6.5 /CUMM) 4.0 Absolute Lymphocytes (1.2 - 3.4 /CUMM) 2.1 Absolute Monocytes (0.10 - 0.60 /CUMM) 1.1 H Absolute Eosinophils (0.0 - 0.7 /CUMM) 0.5 Absolute Basophils (0.0 - 0.2 /CUMM) 0 PUBS MCHC (33.0 - 37.0 G/DL) Pending 34.2 05/08 1341 Chemistry Sodium (137 - 145 mmol/L) 142 Potassium (3.5 - 5.1 mmol/L) 5.0 Chloride (98 - 107 mmol/L) 105 Carbon Dioxide (22 - 30 mmol/L) 25 Anion Gap (5 - 16) 11 BUN (9 - 20 mg/dL) 61 H Creatinine (0.7 - 1.2 mg/dL) 1.5 H Estimated GFR (>60 ml/min) 44 L BUN/Creatinine Ratio (7 - 25 %) 40.7 H Glucose (65 - 99 mg/dL) 110 H Lactic Acid (0.7 - 2.1 mmol/L) 1.3 Calcium (8.4 - 10.2 mg/dL) 9.1 Total Bilirubin (0.2 - 1.3 mg/dL) 0.2 AST (17 - 59 U/L) 14 L ALT (21 - 72 U/L) 14 L Alkaline Phosphatase (< 127 U/L) 59 Troponin I (<0.11 ng/ml) 0.04 Total Protein (6.3 - 8.2 g/dL) 6.1 L Albumin (3.5 - 5.0 g/dL) 3.1 L Globulin (1.9 - 4.2 gm/dL) 3.0 Albumin/Globulin Ratio (1.1 - 2.2 %) 1.0 L Coagulation PT (9.4 - 12.5 SEC) 12.7 H INR (0.90 - 1.17) 1.21 H APTT (25 - 37 SEC) 42 H Hematology CBC w Diff NO MAN DIFF REQ WBC (4.8 - 10.8 /CUMM) 6.6 RBC (4.70 - 6.10 /CUMM) 2.28 L Hgb (14.0 - 18.0 G/DL) 7.1 *L Hct (42 - 52 %) 21.1 L MCV (80.0 - 94.0 FL) 92.8 MCH (27.0 - 31.0 PG) 31.4 H RDW (11.5 - 14.5 %) 14.7 H Plt Count (130 - 400 /CUMM) 138 MPV (7.4 - 10.4 FL) 7.8 Gran % (42.2 - 75.2 %) 58.1 Lymphocytes % (20.5 - 51.1 %) 23.3 Monocytes % (1.7 - 9.3 %) 13.9 H Eosinophils % (0 - 5 %) 3.8 Basophils % (0.0 - 2.0 %) 0.9 Absolute Granulocytes (1.4 - 6.5 /CUMM) 3.8 Absolute Lymphocytes (1.2 - 3.4 /CUMM) 1.5 Absolute Monocytes (0.10 - 0.60 /CUMM) 0.9 H Absolute Eosinophils (0.0 - 0.7 /CUMM) 0.3 Absolute Basophils (0.0 - 0.2 /CUMM) 0.1 PUBS MCHC (33.0 - 37.0 G/DL) 33.8 Imaging/Other Studies: 01/03/2017: EKG- NSR @ 65, borderline LAD, flat T in III & L. 01/03/2017: XR PORTABLE CHEST- 1. No active cardiopulmonary disease. There is no significant interim change. ASHD of aortic knob. 2. There is chronic mild to moderate right base linear scar/subsegmental atelectasis.
--- NOTE | 2017-01-04 08:13 | PN- Housestaff ---
Subjective Follow-up For: Acute on chronic anemia/upper GI bleed with low H&H Complaints: no complaints Subjective: Patient was seen and examined morning. He was lying comfortably on bed but feels pain and lethargic. He denied any abdominal pain, fever but admits that he had back pain but that is chronic from his spinal stenosis. His hemoglobin dropped to 7.3 this morning and was transfused with 1 unit of packed red cell and repeat hemoglobin was 8.6. Patient will go for EGD today Review of Systems Constitutional: Reports: weakness. Denies: chills, diaphoresis. Cardiovascular: Denies: chest pain, edema. Respiratory: Denies: cough, hemoptysis. Gastrointestinal: Denies: bloating, constipation, diarrhea. Genitourinary: Denies: dysuria. Musculoskeletal: Reports: back pain. Objective Last 24 Hrs of Vital Signs/I&O Vital Signs Date Time Temp Pulse Resp B/P B/P Pulse O2 O2 Flow FiO2 Mean Ox Delivery Rate 01/04 0955 98.2 64 18 116/64 94 Room Air Room Air 01/04 0935 98.0 66 18 118/62 96 Room Air Room Air 01/04 0554 97.5 64 20 118/64 96 Room Air 01/04 0143 98.0 59 20 122/68 96 Room Air 01/04 0050 98.2 63 16 136/61 95 Room Air 01/03 2205 98.9 71 20 152/68 96 Room Air / 1516 97.7 64 18 139/61 98 Room Air / 1510 97.4 66 18 137/65 98 Room Air 01/03 1509 97.5 81 18 153/67 98 Room Air 01/03 1428 98 Room Air Intake & Output 01/04 1600 01/04 0800 05/ 0000 Intake Total Output Total 1400 Balance -1400 Output, Urine 1400 Patient 188 lb Weight Physical Exam General Appearance: Oriented X3, Cooperative Cardiovascular: Regular Rate, Normal S1, Normal S2, No Murmurs Lungs: Normal Air Movement Abdomen: Soft, No Tenderness Current Medications: Current Medications Sig/Alcon Start time Last Medication Dose Route Stop Time Status Admin Acetaminophen 650 MG Q6P PRN 01/03 1615 AC PO Acetaminophen 1,000 MG Q6P PRN 01/03 1615 AC IV Atorvastatin Calcium 10 MG 1700 01/04 1700 AC PO Clonazepam 0 .STK-MED ONE 01/03 2204 DC PO Clonazepam 1 MG QPM 01/03 2200 AC 01/03 PO 01/10 2159 2204 Divalproex Sodium 250 MG TID 01/03 1710 AC 01/04 PO 0939 Donepezil HCl 10 MG DAILY 01/04 1000 AC 01/04 PO 0938 Nystatin 1 DIVINA BID 01/04 1000 AC 01/04 TOP 1051 Oxycodone HCl 5 MG Q6P PRN 01/03 1615 AC PO Pantoprazole Sodium 40 MG DAILY 01/04 1000 CAN IV Pantoprazole Sodium 40 MG Q5H 01/03 2345 AC 01/04 Sodium Chloride 100 ML IV 1118 Pantoprazole Sodium 40 MG Q5H 01/03 1645 DC Sodium Chloride 100 ML IV Pantoprazole Sodium 0 .STK-MED ONE 01/03 1613 DC IV Pantoprazole Sodium 40 MG ONCE ONE 01/03 1430 DC 01/03 Sodium Chloride 100 ML IV 01/03 1929 1621 Patient Medication 1 UNIT ONE NR 01/03 1515 DC Teaching ED 01/03 2115 Sodium Chloride 1,000 ML Q13H 01/03 1800 AC 01/04 IV 0806 Sodium Chloride 1,000 ML BOLUS ONE 01/03 1345 DC 0508 IV 01/03 1444 1400 Last 24 Hrs of Lab/Ranjeet Results Last 24 Hrs of Labs/Mics: Laboratory Tests 01/04/17 1255: CBC w Diff NO MAN DIFF REQ, RBC 2.77 L, MCV 91.2, MCH 31.0, RDW 16.8 H, MPV 7.9, Gran % 55.6, Lymphocytes % 23.4, Monocytes % 12.6 H, Eosinophils % 7.8 H, Basophils % 0.6, Absolute Granulocytes 3.6, Absolute Lymphocytes 1.5, Absolute Monocytes 0.8 H, Absolute Eosinophils 0.5, Absolute Basophils 0, PUBS MCHC 34.0 01/04/17 0630: Anion Gap 7, Estimated GFR 48 L, BUN/Creatinine Ratio 32.9 H, CBC w Diff NO MAN DIFF REQ, RBC 2.32 L, MCV 92.5, MCH 31.3 H, RDW 16.1 H, MPV 7.9, Gran % 53.7, Lymphocytes % 22.9, Monocytes % 13.1 H, Eosinophils % 9.4 H, Basophils % 0.9, Absolute Granulocytes 2.9, Absolute Lymphocytes 1.3, Absolute Monocytes 0.7 H, Absolute Eosinophils 0.5, Absolute Basophils 0, PUBS MCHC 33.9 01/03/172054: CBC w Diff NO MAN DIFF REQ, RBC 2.57 L, MCV 92.0, MCH 31.5 H, RDW 15.9 H, MPV 7.4, Gran % 52.5, Lymphocytes % 26.9, Monocytes % 13.9 H, Eosinophils % 6.1 H, Basophils % 0.6, Absolute Granulocytes 4.0, Absolute Lymphocytes 2.1, Absolute Monocytes 1.1 H, Absolute Eosinophils 0.5, Absolute Basophils 0, PUBS MCHC 34.2 01/03/17 1632: Lactic Acid Cancelled Microbiology 01/03 142 BLOOD: Blood Culture - RES 01/03 140 BLOOD: Blood Culture - RES Assessment/Plan Assessment: Patient is 86-year-old gentleman with past medical history significant for severe degenerative joint disease, spinal stenosis on NSAIDs which are on hold, questionable syncope, seizure disorder, hypertension, dyslipidemia, benign prostatic hypertrophy, CK D, recurrent UTIs with indwelling Chavez's catheter, paroxysmal atrial fibrillation on Eliquis which is on hold since yesterday, dementia was brought in from [facility] yesterday after noticing melena and low H&H. Patient was admitted on general medical floor and following issues will be addressed Problem #1 acute anemia with low H&H most likely upper GI bleed Patient is seen by gastroenterologists and was started on protonix drip and we will continue with that until he would have EGD today and we will decide further for dose of PPI He dropped his H&H to 7.3 this morning and was transfused with 1 unit of packed red cell and repeat H&H is 8.6. We will check H&H every 8 hours for now till once it would be stable We will keep his hemoglobin more than 8 Problem #2 chronic back pain with spinal stenosis We will hold any NSAIDs and will give patient IV acetaminophen for pain relief Problem #3 History of hypertension/hyperlipidemia We continued his statins but antihypertensives are on hold and we will resume once he would be stable from GI standpoint. We will watch his blood pressure closely Problem #4 history of atrial fibrillation on Eliquis Because of low H&H and most likely upper GI bleed his Eliquis was stopped. Cardiology consultation was placed and patient was seen by Dr. Mckinney. He would have his EGD today and most likely because of high HLD Vascor would need anticoagulation but that could be decided later after EGD results Problem #5 history of dementia We continued his home dose of Aricept Problem #6 history of recurrent UTIs on chronic indwelling catheter Patient remain on Chavez's catheter during hospital stay Currently patient is nothing by mouth for EGD later today Alps for DVT prophylaxis Patient is DNI DNR Problem List: 1. GI bleed 2. Anemia Pain Ratin Pain Location: Back pain Pain Goal: Remain pain free Pain Plan: Acetaminophen and oxycodone Tomorrow's Labs & Rationales: CBC and basic electrolyte panel
[2017-01-04 08:18] LABS: ABSOLUTE BASOPHIL COUNT 0 /CUMM (0.0-0.2); ABSOLUTE EOSINOPHIL COUNT 0.5 /CUMM (0.0-0.7); ABSOLUTE MONOCYTE COUNT 0.7 /CUMM (0.10-0.60); EOSINOPHIL % 9.4 % (0-5); MEAN PLATELET VOLUME 7.9 FL (7.4-10.4)
[2017-01-04 08:49] LABS: ABSOLUTE GRANULOCYTE CT 2.9 /CUMM (1.4-6.5); ABSOLUTE LYMPH COUNT 1.3 /CUMM (1.2-3.4); BASOPHIL % 0.9 % (0.0-2.0); GRANULOCYTE % 53.7 % (42.2-75.2); HEMATOCRIT 21.5 % (42-52); MEAN CORPUSCULAR HGB 31.3 PG (27.0-31.0); MEAN CORPUSCULAR HGB CONC 33.9 G/DL (33.0-37.0); MEAN CORPUSCULAR VOLUME 92.5 FL (80.0-94.0); PLATELET COUNT 102 /CUMM (130-400); RBC DISTRIBUTION WIDTH 16.1 % (11.5-14.5); RED BLOOD CELL CT 2.32 /CUMM (4.70-6.10); WHITE BLOOD CELL COUNT 5.5 /CUMM (4.8-10.8)
[2017-01-04 09:35] VITALS: BP 118/62
[2017-01-04 09:55] VITALS: BP 116/64
--- NOTE | 2017-01-04 11:23 | Cons- Cardiology ---
General Information and HPI Consulting Request Date of Consult: 01/04/17 Requested By: SARAH CRUZ M.D Reason for Consult: Management of anticoagulation. Source of Information: patient, old records Exam Limitations: dementia History of Present Illness: Mr. Carlos Johnson is an 86 -year-old male with a history of degenerative joint disease, spinal stenosis on NSAID's, mechanical falls, questionable syncope, seizure disorder, hypertension, dyslipidemia, benign prostatic hypertrophy, mild chronic kidney disease, recurrent UTIs with indwelling Chavez catheter, dementia, and paroxysmal atrial fibrillation for which he has been on the factor X a inhibitor Eliquis (apixaban) which has been on hold since 01/03/2017 who presented via ambulance from his [facility] to the ED on 01/03/2017 for lethargy, weakness, fatigue, and was found to be hemodynamically stable, but pale with dark stool and an H/H of 6.7/19.7. He had his NSAID's and Eliquis held, was transfused 1 unit PRBCs yesterday and is receiving 1 now, was seen by gastroenterology (Christophe Marquez M.D.) and was placed by IV Protonix with a 80 mg bolus followed by a drip at 8 mg per hour. At present he is without complaints and specifically denies any chest discomfort , palpitations, shortness of breath, orthopnea, paroxysmal nocturnal dyspnea, lower extremity edema, etc. Allergies/Medications Allergies: Coded Allergies: NO KNOWN ALLERGIES (06/30/12) Home Med List: Acetaminophen (Tylenol Arthritis) 650 MG TABLET.ER 1 TAB PO BID PAIN ( Reported) Apixaban (Eliquis) 2.5 MG TABLET 1 TAB PO BID BLOOD THINNER (Reported) Cetirizine HCl (Zyrtec) 10 MG TABLET 1 TAB PO DAILY ALLERGIES (Reported) Clonazepam (Klonopin) 1 MG TABLET 1 TAB PO BEDTIME PRN seizure (Reported) Clonazepam 1 MG TABLET 1 TAB PO QPM RESTLESS LEGS (Reported) Divalproex Sodium (Depakote) 250 MG TABLET.DR 1 TAB PO TID SEIZURES (Reported ) Donepezil HCl (Aricept) 10 MG TABLET 1 TAB PO QPM MEMORY (Reported) Gabapentin 300 MG CAPSULE 1 CAP PO BID UNKNOWN (Reported) Lidocaine 5 % ADH..PATCH 1 PAT TOP DAILY PAIN (Reported) Lisinopril 10 MG TABLET 1 TAB PO DAILY BP (Reported) Meloxicam (Mobic) 15 MG TABLET 1 TAB PO DAILY PAIN (Reported) Mometasone Furoate (Nasonex) 50 MCG SPRAY.PUMP 2 SPRAY NASB DAILY ALLERGIES ( Reported) Simvastatin (Zocor*) 20 MG TABLET 1 TAB PO QPM CHOLESTEROL (Reported) Tamsulosin HCl (Flomax) 0.4 MG CAP.ER.24H 1 CAP PO DAILY PROSTATE (Reported) Review of Systems Review of Systems: 14 point system review was attempted, but was unobtainable as patient has dementia. Past History Travel History Traveled to [facility] past 21 day No Medical History Blood Transfusion Hx: No (not before 01/03/17) Neurological: dementia, restless leg syndrome, seizure EENT: hearing loss Cardiovascular: AFIB (PAF), hypertension, hyperlipidemia, syncope Respiratory: pneumonia Gastrointestinal: NONE Hepatic: NONE Renal: benign prost hyperplasia, chronic kidney disease (mild), hematuria recurrent urinary tract infections Musculoskeletal: degen joint disease, falls, spinal stenosis, right TKR Psychiatric: NONE Endocrine: NONE Blood Disorders: NONE Cancer(s): ? melanoma & SC Ca skin SEEING EYE DOG TRAINER/Reproductive: NONE Other Medical Hx: His resident data she shows a seizure disorder, hypertension, degenerative joint disease, chronic low back pain, melanoma and squamous cell carcinoma, restless leg syndrome, high cholesterol, UTIs with sepsis, pneumonia Surgical History Surgical History: knee replacement (right), surgery for L- spinal stenosis Family History Relations & Conditions If Any: MOTHER FH: dementia FH: hypertension FATHER FH: hypertension BROTHER FH: seizures Psychosocial History Where Do You Live? Extended Care Facility ([facility] since 11/2016) Who Do You Live With? ECF Services at Home: Nursing, indwelling Chavez Primary Language: French Smoking Status: Never Smoked ETOH Use: occasional use (rare beer) Illicit Drug Use: denies illicit drug use Living Will? yes Power of Mill Tender Washing/HCP? yes Name of POA/HCP: Pt's S-I-L, Luiz Lopez [phone] Other Social History: since 1998. Resident at [facility] since 11/2016. Previously lived at [facility], but transferred due to falls. No cigarettes. Rare beer. No drugs. 2 dtrs- [facility] (Shirley Lopez & Kasey Pacheco). *Pt's POA is his S-I-L, Luiz Lopez (cell- ; home- [phone]). Retired builder. Previously was in the [employer]. DNR-DNI (although okay to resuscitate during procedure) Functional Ability ADLs Independent: dressing. Needs Assist: eating, toileting, bathing. Ambulation: unknown IADLs Needs Assist: shopping, housework, finances, food prep, telephone, transportation, medication admin. Employment History Employment: Retired Profession/Employer Builder/[employer] Exam & Diagnostic Data Vital Signs and I&O Vital Signs Date Time Temp Pulse Resp B/P B/P Pulse O2 O2 Flow FiO2 Mean Ox Delivery Rate 01/04 0955 98.2 64 18 116/64 94 Room Air Room Air 01/04 0935 98.0 66 18 118/62 96 Room Air Room Air / 0554 97.5 64 20 118/64 96 Room Air / 0143 98.0 59 20 122/68 96 Room Air 05/09 0050 98.2 63 16 136/61 95 Room Air 05/08 2205 98.9 71 20 152/68 96 Room Air 05/08 1516 97.7 64 18 139/61 98 Room Air 05/08 1510 97.4 66 18 137/65 98 Room Air 05/08 1509 97.5 81 18 153/67 98 Room Air 05/08 1428 98 Room Air 05/08 1334 97.0 67 20 133/63 99 Room Air Intake & Output 01/04 1600 / 0800 05/ 0000 05/08 1600 05/08 0800 05/08 0000 Intake Total Output Total 1400 20 Balance -1400 -20 Output, Urine 1400 20 Patient 188 lb 170 lb Weight Weight Reported by Patient Measurement Method Physical Exam: Pale-appearing elderly male in no acute distress. Vital signs: See above. HEENT: Normocephalic, atraumatic, EOMI, slightly dry mucous membranes. Neck: No JVD, no bruits. Lungs: Clear to auscultation bilaterally. Heart: S1, S2 with soft (grade 1/6) systolic murmur. No rub appreciated. PMI fifth ICS at [facility]. Abdomen: Soft, nontender, positive bowel sounds. Extremities: No edema. Diagnostic Data EKG Results (01/03/2017): Sinus rhythm, borderline LAD, and otherwise unremarkable. Minor changes when compared to previous tracing (04/28/2014). CXR Results CXR (01/03/2017): 1. No active cardiopulmonary disease. There is no significant interim change. 2. There is chronic mild to moderate right base linear scar/subsegmental atelectasis. Assessment/Plan Assessment/Plan 86 y o m with a hx of DJD, spinal stenosis on NSAID's (on hold), mechanical falls, questionable syncope, seizure disorder, HTN, HLD, BPH, mild CKD, recurrent UTIs with indwelling Chavez, dementia, and PAF which he has been on Eliquis (on hold since 01/03/2017) who presented to the ED on 01/03/2017 for lethargy, weakness, fatigue, and was found to be hemodynamically stable, but pale with dark stool and an H/H of 6.7/19.7. He had his NSAID's and Eliquis held, was transfused 1 unit PRBCs yesterday and is receiving 1 now, was seen by gastroenterology (Christophe Marquez M.D.) and was placed by IV Protonix with a 80 mg bolus followed by a drip at 8 mg per hour. After Dr. Marquez discussed management options with family members, including Mr. Johnson's power of advisory software engineer, the plan is to proceed with EGD. From a cardiac standpoint, we would like to get him back on anticoagulation, given his high CHADS-2 score, if possible, but would defer to gastroenterology regarding his ongoing suitability for this from their standpoint. Consult Acknowledgment - Thank you for your consult request.
[2017-01-04 13:49] LABS: ABSOLUTE BASOPHIL COUNT 0 /CUMM (0.0-0.2); ABSOLUTE EOSINOPHIL COUNT 0.5 /CUMM (0.0-0.7); ABSOLUTE GRANULOCYTE CT 3.6 /CUMM (1.4-6.5); ABSOLUTE LYMPH COUNT 1.5 /CUMM (1.2-3.4); ABSOLUTE MONOCYTE COUNT 0.8 /CUMM (0.10-0.60); BASOPHIL % 0.6 % (0.0-2.0); EOSINOPHIL % 7.8 % (0-5); GRANULOCYTE % 55.6 % (42.2-75.2); HEMATOCRIT 25.3 % (42-52); MEAN CORPUSCULAR VOLUME 91.2 FL (80.0-94.0); MEAN PLATELET VOLUME 7.9 FL (7.4-10.4); PLATELET COUNT 103 /CUMM (130-400); RBC DISTRIBUTION WIDTH 16.8 % (11.5-14.5); RED BLOOD CELL CT 2.77 /CUMM (4.70-6.10); WHITE BLOOD CELL COUNT 6.4 /CUMM (4.8-10.8)
--- NOTE | 2017-01-04 14:06 | PN- Att Addend ---
Attending Addendum Attending Brief Note 86M PMH chronic back pain due to spinal stenosis(on mobic), recurrent urinary tract infections on chronic indwelling catheter since 2016, history of atrial fibrillation on Alquist 2.5 mg twice a day, history of recurrent falls, history of hypertension and hyperlipidemia, history of seizure disorder admitted with upper GI bleed. Hemodynamically stable, no complaints at this time, Hgb dropped again today to 7.3. AFVSS NAD NCAT Supple RRR CTAB Soft, NTND No c/c/e Pulses intact A&Ox3 no focal deficits Current Medications Sig/Alcon Start time Last Medication Dose Route Stop Time Status Admin Acetaminophen 650 MG Q6P PRN 01/03 1615 AC PO Acetaminophen 1,000 MG Q6P PRN 01/03 1615 AC IV Atorvastatin Calcium 10 MG 1700 01/04 1700 AC PO Clonazepam 0 .STK-MED ONE 01/03 2204 DC PO Clonazepam 1 MG QPM 01/03 2200 AC 01/03 PO 01/10 2159 2204 Divalproex Sodium 250 MG TID 01/03 1710 AC 01/04 PO 0939 Donepezil HCl 10 MG DAILY 01/04 1000 AC 01/04 PO 0938 Nystatin 1 DIVINA BID 01/04 1000 AC 01/04 TOP 1051 Oxycodone HCl 5 MG Q6P PRN 01/03 1615 AC PO Pantoprazole Sodium 40 MG DAILY 01/04 1000 CAN IV Pantoprazole Sodium 40 MG Q5H 01/03 2345 AC 01/04 Sodium Chloride 100 ML IV 1118 Pantoprazole Sodium 40 MG Q5H 01/03 1645 DC Sodium Chloride 100 ML IV Pantoprazole Sodium 0 .STK-MED ONE 01/03 1613 DC IV Pantoprazole Sodium 40 MG ONCE ONE 01/03 1430 DC 01/03 Sodium Chloride 100 ML IV 01/03 1929 1621 Patient Medication 1 UNIT ONE NR 01/03 1515 DC Teaching ED 01/03 2115 Sodium Chloride 1,000 ML Q13H 01/03 1800 AC 01/04 IV 0806 Sodium Chloride 1,000 ML BOLUS ONE 01/03 1345 DC / IV 01/03 1444 1400 Laboratory Tests 01/04 01/04 1255 0630 Chemistry Sodium (137 - 145 mmol/L) 143 Potassium (3.5 - 5.1 mmol/L) 4.9 Chloride (98 - 107 mmol/L) 112 H Carbon Dioxide (22 - 30 mmol/L) 24 Anion Gap (5 - 16) 7 BUN (9 - 20 mg/dL) 46 H Creatinine (0.7 - 1.2 mg/dL) 1.4 H Estimated GFR (>60 ml/min) 48 L BUN/Creatinine Ratio (7 - 25 %) 32.9 H Hematology CBC w Diff NO MAN DIFF REQ NO MAN DIFF REQ WBC (4.8 - 10.8 /CUMM) 6.4 5.5 RBC (4.70 - 6.10 /CUMM) 2.77 L 2.32 L Hgb (14.0 - 18.0 G/DL) 8.6 L 7.3 *L Hct (42 - 52 %) 25.3 L 21.5 L MCV (80.0 - 94.0 FL) 91.2 92.5 MCH (27.0 - 31.0 PG) 31.0 31.3 H RDW (11.5 - 14.5 %) 16.8 H 16.1 H Plt Count (130 - 400 /CUMM) 103 L 102 L MPV (7.4 - 10.4 FL) 7.9 7.9 Gran % (42.2 - 75.2 %) 55.6 53.7 Lymphocytes % (20.5 - 51.1 %) 23.4 22.9 Monocytes % (1.7 - 9.3 %) 12.6 H 13.1 H Eosinophils % (0 - 5 %) 7.8 H 9.4 H Basophils % (0.0 - 2.0 %) 0.6 0.9 Absolute Granulocytes (1.4 - 6.5 /CUMM) 3.6 2.9 Absolute Lymphocytes (1.2 - 3.4 /CUMM) 1.5 1.3 Absolute Monocytes (0.10 - 0.60 /CUMM) 0.8 H 0.7 H Absolute Eosinophils (0.0 - 0.7 /CUMM) 0.5 0.5 Absolute Basophils (0.0 - 0.2 /CUMM) 0 0 PUBS MCHC (33.0 - 37.0 G/DL) 34.0 33.9 01/035 1632 Chemistry Lactic Acid Cancelled Hematology CBC w Diff NO MAN DIFF REQ WBC (4.8 - 10.8 /CUMM) 7.7 RBC (4.70 - 6.10 /CUMM) 2.57 L Hgb (14.0 - 18.0 G/DL) 8.1 L Hct (42 - 52 %) 23.7 L MCV (80.0 - 94.0 FL) 92.0 MCH (27.0 - 31.0 PG) 31.5 H RDW (11.5 - 14.5 %) 15.9 H Plt Count (130 - 400 /CUMM) 118 L MPV (7.4 - 10.4 FL) 7.4 Gran % (42.2 - 75.2 %) 52.5 Lymphocytes % (20.5 - 51.1 %) 26.9 Monocytes % (1.7 - 9.3 %) 13.9 H Eosinophils % (0 - 5 %) 6.1 H Basophils % (0.0 - 2.0 %) 0.6 Absolute Granulocytes (1.4 - 6.5 /CUMM) 4.0 Absolute Lymphocytes (1.2 - 3.4 /CUMM) 2.1 Absolute Monocytes (0.10 - 0.60 /CUMM) 1.1 H Absolute Eosinophils (0.0 - 0.7 /CUMM) 0.5 Absolute Basophils (0.0 - 0.2 /CUMM) 0 PUBS MCHC (33.0 - 37.0 G/DL) 34.2 Plan - Continue on general medicine - EGD today - Follow GI recommendations - Monitor CBC tonight and tomorrow morning - Transfuse Hgb<8 - Continue PPI - Continue home medications - DVT PPx - Anticipated discharge tomorrow. Please send CMR for review to pharmacy.
[2017-01-04] MEDS ORDERED: OMEPRAZOLE40 M1 PO (14:28)
--- NOTE | 2017-01-04 14:31 | Patient Discharge Instructions ---
Discharge Instructions General Discharge Information You were seen/treated for: Acute anemia, low hemoglobin and GI bleed Gastric ulcers You had these procedures: Upper endoscopy Special Instructions: Please follow-up with your primary care physician in one week of discharge No NSAIDs please Please follow-up with gastroenterology as outpatient in 1-2 weeks of discharge Please hold Eliquis x 2 months and *repeat an EGD in 02/2017 to document healing of the gastric ulcers. Cardiology and raw stock dyeing machine tender to reevaluate you after 2 months and will guide you regarding resuming Eliquis Diet Recommended Diet: Heart Healthy Activity Additional ACTIVITY Info: As tolerated with assistance Acute Coronary Syndrome Inclusion Criteria At DC or during hospital stay patient has or had the following: ACS DIAGNOSIS No Discharge Core Measures Meds if any: Prescribed or Continued at Discharge Meds if any: NOT Prescribed or Continued at Discharge Congestive Heart Failure Inclusion Criteria At DC or during hospital stay patient has or had the following: CHF DIAGNOSIS No Discharge Core Measures Meds if any: Prescribed or Continued at Discharge Meds if any: NOT Prescribed or Continued at Discharge Cerebrovascular accident Inclusion Criteria At DC or during hospital stay patient has or had the following: CVA/TIA Diagnosis No Discharge Core Measures Meds if any: Prescribed or Continued at Discharge Meds if any: NOT Prescribed or Continued at Discharge Venous thromboembolism Inclusion Criteria VTE Diagnosis No VTE Type NONE VTE Confirmed by (Test) NONE Discharge Core Measures - Per Current guidelines, there needs to be overlap - treatment for the first 5 days of Warfarin therapy. - If discharged on Warfarin prior to 5 days of - overlap therapy, the patient will need to be - assessed for post discharge needs including - *Post discharge parental anticoagulation - *Warfarin and/or parental anticoagulation education - *Follow up date to check INR post discharge At least 5 days overlap therapy as Inpatient No Meds if any: Prescribed or Continued at Discharge Note: Overlap Therapy is Warfarin and Anticoagulant Meds if any: NOT Prescribed or Continued at Discharge
--- NOTE | 2017-01-04 14:45 | Proc Note Endoscopy ---
Endoscopy Procedure Medical History: unchanged Mental Status: confused (Ox1; OBS) Heart/Lung Eval Prior to Sedation: within normal limits (hx PAF, currently NSR) Candidate for Sedation? Yes Procedure Date: 01/04/17 Procedure Type: EGD w/biopsy Metal Lather: MOHAN DE OLIVEIRA MD ASA Classification: IV Indications: (*Please refer to inpatient GI consultation of 01/03/2017). INDX: 86-year-old male with numerous comorbidities, HTN/HLD/OBS (Ox1- person)/ PAF- NSR/DNR DNI/history of mechanical falls & ? history of syncope/TANACROSS/DJD/ spinal stenosis/right TKR/restless leg syndrome/mild CKD/history of UTI with chronic indwelling Chavez/history of pneumonia/BPH/history of seizure/ questionable history of melanoma and SC Ca skin, admitted to [facility] from [facility] 01/03/2017 with questionable melena, anemia, OB positive stool. Poor historian. He has been transfused. Elevated BUN:Cr ratio, implying UGI source. Reportedly normal colonoscopy in [place], in the late 1989's. No previous EGD. *Ex-Mobic. *Eliquis held since 01/03/2017. *Documenting photographs were placed inside the patient's chart. *Witnessed telephone informed consent for EGD was previously obtained from the patient's son-in-law/POA, Luiz Lopez, at . Instrument: diagnostic gastroscope Meds Received: MAC Patient's Tolerance: good Complications: none Extent Reached: second part of duodenum Procedure: Baseline upper endoscopy to the second portion of the duodenum with biopsies, was performed with the Olympus high definition videoendoscope, after obtaining witnessed telephone informed consent from the patient's son-inlaw/POA, Luiz Lopez ( ), with the cardiac care nurse and pulse oximeter, with the assistance of Dr. Azar, of [facility]. A mouthpiece was placed in the usual fashion to protect the patient's teeth. The patient was placed in the semi-left lateral decubitus position and sedated by [facility]. At this point, the endoscope was advanced from the mouth into the esophagus, using direct visualization technique. The vocal cords appeared normal. The esophageal mucosa appeared normal. There were no esophageal rings, webs, lesions, strictures, or ulcers. There was no monilia or vesicles. There was no esophageal ribbing. The Z line was well demarcated at 35 cm. There was a 1 cm hiatal hernia pouch, from 35-36 cm, without any Parag erosions. No significant esophageal inflammation was seen. There were no ectopic islands, nor gross Feldman's esophagus. There were no esophageal or gastric varices, nor any Dayan Good tear. The hampton of the stomach distended normally with air insufflation. Direct and retroflexed views of the stomach were performed. There was nothing endoscopically to suggest gastroparesis or portal gastropathy. The mucosa of the gastric cardia, fundus, lesser curvature, incisura, and body, appeared normal, without any proximal gastric ulcers or gastric lesions. *There were 2 adjacent clean-based prepyloric antral gastric ulcers, 1 cm & 8 mm, respectively, which were symmetrical and benign-appearing, without any clot or visible vessel. As the antral gastric ulcers were organizing, a decision was made not to directly biopsy them, at present. Random gastric biopsies were obtained, to rule out H. pylori: (Specimen A- antrum, Specimen B- fundus). The pylorus was patent, without any gastric outlet obstruction or channel ulcer. The duodenal bulb and duodenal sweep appeared normal, without any duodenal ulcers, distal ulcerations, or angiodysplasias. I was not able to see the ampulla with the direct- viewing scope. Bile was seen in the second portion of the duodenum. The folds of the second portion of the duodenum were normal in caliber, without any flattening, nodularity, scalloping, or mosaic pattern. No active upper GI bleeding was seen. The patient tolerated the procedure well. *Documenting photographs were obtained and placed inside the patient's chart. Impression: 1. 2 adjacent clean-based prepyloric antral gastric ulcers, 1 cm & 8 mm, respectively, symmetrical and benign-appearing, without any clot or visible vessel. As the antral gastric ulcers were organizing, a decision was made not to directly biopsy them, at present. Random gastric biopsies were obtained, to rule out H. pylori: (Specimen A- antrum, Specimen B- fundus). 2. 1 cm hiatal hernia pouch, from 35-36 cm. Z line at 35 cm. Recommendations: *Await random gastric biopsies of antrum and fundus (rule out H. pylori). *Check stool Ag for H. pylori. *No NSAIDS. *Eliquis is to remain on hold for now, per discussion with Dr. Mckinney (high ROCK score, but history of falls, OBS & recent UGI bleed/). Continue IV Protonix drip. If stable, may switch to PPI BID tomorrow. Feed patient as tolerated with aspiration precautions. Check CBC BID. Keep Hgb > 8 (hx probable ASHD with PAF). Transfuse as needed. O2 as needed. As an upper GI source was found, especially with elevated BUN/Cr ratio, will defer colonoscopy. The plan is to hold Eliquis x 2 months and *repeat an EGD in 02/2017 to document healing of the gastric ulcers. If they persist, they will need direct biopsies to rule out the unlikely possibility of malignancy. Even if the patient had gastric cancer, he is not a surgical candidate, as per his family's wishes. If the gastric ulcers have healed at that point, then cardiology will have to reassess resuming Eliquis, balanced by the patient's fall risk & OBS. The above findings and recommendations were discussed with the patient's son-in-law/POA, Luiz Lopez, at , and he concurs with this plan. I also spoke with Dr. Mckinney and the medical house staff postoperatively, and left a message with Dr. Bryant, regarding the above. Further conditions to follow, depending on clinical course. ADDENDUM: 01/05/2017- A. GASTRIC ANTRUM, RANDOM BIOPSY: MILD CHRONIC INFLAMMATION, AND NODULAR MUSCULARIS MUCOSA. GIEMSA STAIN IS *NEGATIVE FOR HELICOBACTER-TYPE STRUCTURES. NEGATIVE FOR EVIDENCE OF MALIGNANCY. B. GASTRIC FUNDUS, RANDOM BIOPSY: MILD CHRONIC AND FOCAL MILD ACUTE INFLAMMATION. GIEMSA STAIN IS *NEGATIVE FOR HELICOBACTER-TYPE STRUCTURES. NEGATIVE FOR EVIDENCE OF MALIGNANCY. Dictated by: SAE SRINIVASAN,MARII Barrera (*A message was left with the patient's S-I-L/POA, Luiz Lopez, on 01/05/2017 at 10:17 p.m. at , regarding the benign, HP-negative random gastric bxs, as the pt has OBS) *The pt received 2u PRBC & as of 01/05/2017, was tolerating a regular diet. *Check stool Ag for H. pylori. *No NSAIDS. *Eliquis is to remain on hold for now , per discussion with Dr. Mckinney (high ROCK score, but history of falls, OBS & recent UGI bleed/). IV Protonix drip was swiched to Omeprazole 40 mg po BID, as of 01/05/2017, to be continued at least until the repeat EGD of 02/2017. Feed patient as tolerated with aspiration precautions. Check CBC BID. Keep Hgb > 8 ( hx probable ASHD with PAF). Transfuse as needed. O2 as needed. As an upper GI source was found, especially with elevated BUN/Cr ratio, will defer colonoscopy. The plan is to hold Eliquis x 2 months and *repeat an EGD in 02/2017 to document healing of the gastric ulcers. If they persist, they will need direct biopsies to rule out the unlikely possibility of malignancy. Even if the patient had gastric cancer, he is not a surgical candidate, as per his family's wishes. If the gastric ulcers have healed at that point, then cardiology will have to reassess resuming Eliquis, balanced by the patient's fall risk & OBS. The above findings and recommendations were previously discussed with the patient's son-in-law/POA, Luiz Lopez, at , on 01/04/2017, and he concurred with this plan. I also previously spoke with Dr. Mckinney and the medical house staff postoperatively, and left a message with Dr. Bryant, regarding the above. CC: SARAH BRYANT M.D; MARCELLUS SRINIVASAN,MANAV Gusman; NAJMA SRINIVASAN,KATTY; YASMANI SRINIVASAN,MERY Barrera; JEIMY SRINIVASAN,PAULA
[2017-01-04 15:03] VITALS: BP 120/62
--- NOTE | 2017-01-04 15:42 | Discharge Summary ---
Visit Information Visit Dates Admission Date: 01/03/17 Discharge Date: 01/06/17 Hospital Course Course Attending Physician: Dr. FARMER Primary Care Physician: YASMANI SRINIVASAN,MERY Barrera Other Care Providers: Dr Marquez (GI) Hospital Course: Patient is 86-year-old male with past medical history significant for hypertension, hyperlipidemia, dementia, paroxysmal atrial fibrillation on Eliquis which was held on 01/03/2017, chronic back pain on Mobic at home, restless leg syndrome, mild security, recurrent UTI with chronic indwelling Chavez's catheter, history of seizures on Depakote came from nursing facility with chief complaint of low H&H to 7.1/21.1, dark color stool/melena. Patient was also found to be more lethargic Admission vital signs were blood pressure 153/63, pulse 67, respiratory rate 20, temperature 90.7 and oxygen saturation was 99% on room air. Admission labs- WBC 6.6, H/H 7.1/21.1, MCV 92.8, RDW 14.7, PLT 138, PT 12.7, INR 1.21, PTT 42, glucose 110, BUN/Cr 61/1.5, GFR 44, Na 142, K 5.o, HCO3 25, AG 11, nl lactate 1.3, Ca2+ 9.1, albumin 3.1, globulin 3.0, TBil 0.2, alk phos 59, AST 14, ALT 14, troponin .04. Patient was admitted on general medical floor and following issues were addressed Problem #1 acute anemia with low H&H most likely upper GI bleed * Admission hemoglobin was 7.1 patient was transfused with 2 units of packed red cells and GI consultation was called and patient was seen by command and control specialist Dr. Marquez and decision was made to make patient nothing by mouth for EGD next morning. Patient was started on protonic drip. Posttransfusion hemoglobin was 8.1. H&H remained stable the rest of the hospital course * Patient had EGD that did show 2 adjacent clean-based prepyloric antral gastric ulcers, 1 cm & 8 mm, respectively, symmetrical and benign-appearing, without any clot or visible vessel. As the antral gastric ulcers were organizing decision was made not to directed biopsy * EGD biopsies from Gastric antrum: Mild chronic inflammation and nodular muscularis mucosa. Negative for H. pylori. Negative for evidence of malignancy * EGD biopsies from gastric fundus: Mild chronic and focal mild acute inflammation. Negative for H. pylori. Negative for malignancy * The patient will be discharged on omeprazole 40 mg by mouth twice a day * Patient will require follow-up EGD in February 2017 * A discussion between the research administrator (Dr. Mckinney) cyst and command and control specialist , the decision was made to hold off anticoagulation for the next 2 months. Thus the patient will not be on Eliquis until follow-up EGD is being performed Problem #2: Thrombocytopenia * There was a transient drop in platelets from admission down from [address] attribute it to the transfusion. During the rest of the hospital course platelet count remained stable Problem #3: Acute on chronic CKD * Stable: BUN/CR 25/1.3 * This was partly attributable to acute blood loss anemia with decreased renal perfusion Problem 4: Chronic back pain with spinal stenosis * Tylenol when necessary for pain management * Pain pathway score 0-2 Problem 5: History of hypertension, hyperlipidemia * Prior to admission the patient was on lisinopril 10 mg daily which was held in the setting of acute GI bleed * Blood pressure was noted to be slightly elevated in 170s for which he received 1 dose of lisinopril 5 mg * Follow up BP was 150 systolic. Will restart lisinopril 10 mg daily for target BP of less than 150/90 per JNC8 criteria Problem #5: A. fib previously on Eliquis * Patient to be off aspirin and Eliquis for at least 2 months Problem #6 history of dementia * We continued his home dose of Aricept Problem #7 history of recurrent UTIs on chronic indwelling catheter * Patient remain on Chavez's catheter during hospital stay Problem #8: Productive cough * Mucinex for mucolytic therapy Alps for DVT prophylaxis Patient is DNI DNR Complications: NONE Allergies: Coded Allergies: NO KNOWN ALLERGIES (06/30/12) Significant Procedures: Endoscopy Procedure Medical History: unchanged Mental Status: confused (Ox1; OBS) Heart/Lung Eval Prior to Sedation: within normal limits (hx PAF, currently NSR) Candidate for Sedation? Yes Procedure Date: 01/04/17 Procedure Type: EGD w/biopsy Development Officer: YENNIFER SRINIVASAN,MOHAN Wong ASA Classification: IV Indications: (*Please refer to inpatient GI consultation of 01/03/2017). INDX: 86-year-old male with numerous comorbidities, HTN/HLD/OBS (Ox1- person)/ PAF- NSR/DNR DNI/history of mechanical falls & ? 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 Poor historian. He has been transfused. Elevated BUN:Cr ratio, implying UGI source. Reportedly normal colonoscopy in [place], in the late s. No previous EGD. *Ex-Mobic. *Eliquis held since 01/03/2017. *Documenting photographs were placed inside the patient's chart. *Witnessed telephone informed consent for EGD was previously obtained from the patient's son-in-law/POA, Luiz Lopez, at . Instrument: diagnostic gastroscope Meds Received: MAC Patient's Tolerance: good Complications: none Extent Reached: second part of duodenum Procedure: Baseline upper endoscopy to the second portion of the duodenum with biopsies, was performed with the Olympus high definition videoendoscope, after obtaining witnessed telephone informed consent from the patient's son-inlaw/POA, Luiz Lopez ( ), with the facilities plant engineer and pulse oximeter, with the assistance of Dr. Azar, of [facility]. A mouthpiece was placed in the usual fashion to protect the patient's teeth. The patient was placed in the semi-left lateral decubitus position and sedated by [facility]. At this point, the endoscope was advanced from the mouth into the esophagus, using direct visualization technique. The vocal cords appeared normal. The esophageal mucosa appeared normal. There were no esophageal rings, webs, lesions, strictures, or ulcers. There was no monilia or vesicles. There was no esophageal ribbing. The Z line was well demarcated at 35 cm. There was a 1 cm hiatal hernia pouch, from 35-36 cm, without any Parag erosions. No significant esophageal inflammation was seen. There were no ectopic islands, nor gross Feldman's esophagus. There were no esophageal or gastric varices, nor any Dayan Good tear. The hampton of the stomach distended normally with air insufflation. Direct and retroflexed views of the stomach were performed. There was nothing endoscopically to suggest gastroparesis or portal gastropathy. The mucosa of the gastric cardia, fundus, lesser curvature, incisura, and body, appeared normal, without any proximal gastric ulcers or gastric lesions. *There were 2 adjacent clean-based prepyloric antral gastric ulcers, 1 cm & 8 mm, respectively, which were symmetrical and benign-appearing, without any clot or visible vessel. As the antral gastric ulcers were organizing, a decision was made not to directly biopsy them, at present. Random gastric biopsies were obtained, to rule out H. pylori: (Specimen A- antrum, Specimen B- fundus). The pylorus was patent, without any gastric outlet obstruction or channel ulcer. The duodenal bulb and duodenal sweep appeared normal, without any duodenal ulcers, distal ulcerations, or angiodysplasias. I was not able to see the ampulla with the direct- viewing scope. Bile was seen in the second portion of the duodenum. The folds of the second portion of the duodenum were normal in caliber, without any flattening, nodularity, scalloping, or mosaic pattern. No active upper GI bleeding was seen. The patient tolerated the procedure well. *Documenting photographs were obtained and placed inside the patient's chart. Impression: 1. 2 adjacent clean-based prepyloric antral gastric ulcers, 1 cm & 8 mm, respectively, symmetrical and benign-appearing, without any clot or visible vessel. As the antral gastric ulcers were organizing, a decision was made not to directly biopsy them, at present. Random gastric biopsies were obtained, to rule out H. pylori: (Specimen A- antrum, Specimen B- fundus). 2. 1 cm hiatal hernia pouch, from 35-36 cm. Z line at 35 cm. Recommendations: *Await random gastric biopsies of antrum and fundus (rule out H. pylori). *Check stool Ag for H. pylori. *No NSAIDS. *Eliquis is to remain on hold for now, per discussion with Dr. Mckinney (high ROCK score, but history of falls, OBS & recent UGI bleed/). Continue IV Protonix drip. If stable, may switch to PPI BID tomorrow. Feed patient as tolerated with aspiration precautions. Check CBC BID. Keep Hgb > 8 (hx probable ASHD with PAF). Transfuse as needed. O2 as needed. As an upper GI source was found, especially with elevated BUN/Cr ratio, will defer colonoscopy. The plan is to hold Eliquis x 2 months and *repeat an EGD in 02/2017 to document healing of the gastric ulcers. If they persist, they will need direct biopsies to rule out the unlikely possibility of malignancy. Even if the patient had gastric cancer, he is not a surgical candidate, as per his family's wishes. If the gastric ulcers have healed at that point, then cardiology will have to reassess resuming Eliquis, balanced by the patient's fall risk & OBS. The above findings and recommendations were discussed with the patient's son-in-law/POA, Luiz Lopez, at , and he concurs with this plan. I also spoke with Dr. Mckinney and the medical house staff postoperatively, and left a message with Dr. Bryant, regarding the above. Further conditions to follow, depending on clinical course. CC: SARAH BRYANT M.D; MARCELLUS SRINIVASAN,MANAV Gusman; NAJMA SRINIVASAN,BEA GRUBER MD,MERY Barrera; PAULA MUNSON MD DICTATED BY: YENNIFER SRINIVASAN,MOHAN Wong DATE/TIME DICTATED:01/04/171417 STUDENT RECORDS COORDINATOR:SORAIDA DATE/TIME TRANSCRIBED:01/04/171417 REPORT NUMBER:[id number] Disposition Summary Disposition Principal Diagnosis: Acute blood loss anemia secondary to clean based gastric ulcers Additional Diagnosis: Thrombocytopenia Acute on chronic CKD Discharge Disposition: SNF Discharge Instructions General Discharge Information Code Status: Do Not Resucitate/Intubat Patient's Diet: Heart healthy diet Patient's Activity: As tolerated with assistance Follow-Up Instructions/Appts: Please follow-up with your primary care physician in one week of discharge Please follow-up with gastroenterology as outpatient in 1-2 weeks of discharge The following medications should be avoided for the next 2 months until a repeat EGD has been performed in February 2017: Eliquis, aspirin, NSAIDs No NSAIDs please Cardiology and command and control specialist to reevaluate you after 2 months and will guide you regarding resuming Eliquis Medications at Discharge Discharge Medications: Stop taking the following medications: Meloxicam (Mobic) 15 MG TABLET ORAL DAILY Apixaban (Eliquis) 2.5 MG TABLET ORAL TWICE DAILY Continue taking these medications: Divalproex Sodium (Depakote) 250 MG TABLET.DR 1 Tablet ORAL THREE TIMES DAILY Lisinopril (Lisinopril) 10 MG TABLET 1 Tablet ORAL DAILY Acetaminophen (Tylenol Arthritis) 650 MG TABLET.ER 1 Tablet ORAL TWICE DAILY Simvastatin (Zocor*) 20 MG TABLET 1 Tablet ORAL Every night Clonazepam (Clonazepam) 1 MG TABLET 1 Tablet ORAL Every night Donepezil HCl (Aricept) 10 MG TABLET 1 Tablet ORAL Every night Tamsulosin HCl (Flomax) 0.4 MG CAP.ER.24H 1 Capsule ORAL DAILY Mometasone Furoate (Nasonex) 50 MCG SPRAY.PUMP 2 [place] Both sides of nose DAILY Cetirizine HCl (Zyrtec) 10 MG TABLET 1 Tablet ORAL DAILY Gabapentin (Gabapentin) 300 MG CAPSULE 1 Capsule ORAL TWICE DAILY Lidocaine (Lidocaine) 5 % ADH..PATCH 1 Patch On the skin DAILY Clonazepam (Klonopin) 1 MG TABLET 1 Tablet ORAL BEDTIME as needed for seizure Start taking the following new medications: Omeprazole (Omeprazole) 40 MG CAPSULE.DR 1 Capsule ORAL DAILY Days = 30 No Refills Copies To: YENNIFER SRINIVASAN,MOHAN Wong; MARCELLUS SRINIVASAN,MANAV Gusman; EHSAN SRINIVASAN,ROBERTO Thomas; YASMANI SRINIVASAN, MERY Barrera Attending MD Review Statement Documenting Attending: KEM FARMER MD
[2017-01-04 22:26] LABS: ABSOLUTE BASOPHIL COUNT 0 /CUMM (0.0-0.2); ABSOLUTE EOSINOPHIL COUNT 0.5 /CUMM (0.0-0.7); ABSOLUTE GRANULOCYTE CT 2.8 /CUMM (1.4-6.5); ABSOLUTE LYMPH COUNT 1.6 /CUMM (1.2-3.4); ABSOLUTE MONOCYTE COUNT 0.8 /CUMM (0.10-0.60); BASOPHIL % 0.4 % (0.0-2.0); EOSINOPHIL % 8.5 % (0-5); GRANULOCYTE % 48.7 % (42.2-75.2); HEMATOCRIT 24.7 % (42-52); MEAN CORPUSCULAR HGB 30.4 PG (27.0-31.0); MEAN CORPUSCULAR HGB CONC 33.3 G/DL (33.0-37.0); MEAN CORPUSCULAR VOLUME 91.2 FL (80.0-94.0); MEAN PLATELET VOLUME 7.6 FL (7.4-10.4); PLATELET COUNT 99 /CUMM (130-400); RED BLOOD CELL CT 2.71 /CUMM (4.70-6.10); WHITE BLOOD CELL COUNT 5.8 /CUMM (4.8-10.8)
[2017-01-04 22:40] VITALS: BP 124/58
[2017-01-05] VITALS (8 sets, daily range): BP systolic 154–186; BP diastolic 60–100
--- NOTE | 2017-01-05 06:51 | PN- Housestaff ---
See Addendum Subjective Follow-up For: GI bleed Clean based gastric ulcers Acute blood loss anemia Thrombocytopenia Acute on chronic CKD Complaints: no complaints Tele-Events Since Last Visit: No detailer pharmaceuticals Subjective: Interval history: This morning Mr. Johnson denies any complaints. He denies any dizziness, blurred vision, chest pain, palpitations, shortness of breath, nausea, abdominal pain, fevers or chills. He denies any noticeable hpuong blood per rectum. He does have a noticeable cough with clear productive sputum. Denies any sore throat. Review of Systems Constitutional: Reports: see HPI. EENTM: Reports: no symptoms. Cardiovascular: Reports: no symptoms. Respiratory: Reports: see HPI. Gastrointestinal: Reports: see HPI. Musculoskeletal: Reports: no symptoms. Objective Last 24 Hrs of Vital Signs/I&O Vital Signs Date Time Temp Pulse Resp B/P B/P Pulse O2 O2 Flow FiO2 Mean Ox Delivery Rate 01/05 0700 98.0 64 20 156/61 100 Room Air 01/04 2240 98.4 72 20 124/58 95 Room Air 01/04 1600 94 Room Air Room Air 01/04 1503 98.7 64 18 120/62 95 Room Air Room Air Intake & Output 01/05 1600 01/05 0800 05/ 0000 Intake Total 1040 1020 Output Total 900 400 Balance 140 620 Intake, IV 800 300 Intake, Oral 240 720 Output, Urine 900 400 Physical Exam General Appearance: Alert, Cooperative, No Acute Distress Skin Temp/Moisture Exam: Warm/Dry HEENT: EOMI, Mucous Membr. moist/pink Cardiovascular: Normal S1, Normal S2, irregularly irregular Lungs: Normal Air Movement, inspiratory stridor present bilateral upper lung lion Abdomen: Normal Bowel Sounds, Soft, No Tenderness Extremities: No Edema, Normal Pulses Vascular: Pulses Symmetrical Current Medications: Current Medications Sig/Alcon Start time Last Medication Dose Route Stop Time Status Admin Acetaminophen 650 MG Q6P PRN 01/03 1615 AC PO Acetaminophen 1,000 MG Q6P PRN 01/03 1615 AC IV Atorvastatin Calcium 10 MG 1700 01/04 1700 AC 01/04 PO 1621 Chlorhexidine 1 GM .STK-MED ONE 01/04 1434 DC Gluconate TOP 01/04 1435 Clonazepam 1 MG QPM 01/03 2200 AC 01/04 PO 01/10 2159 2139 Divalproex Sodium 250 MG TID 01/03 1710 AC 01/05 PO 0921 Donepezil HCl 10 MG DAILY 01/04 1000 AC 01/05 PO 0920 Guaifenesin 600 MG Q12 01/05 1000 AC PO Nystatin 1 DIVINA BID 01/04 1000 AC 01/05 TOP 0921 Omeprazole 40 MG BID 01/05 1000 AC PO Oxycodone HCl 5 MG Q6P PRN 01/03 1615 AC PO Pantoprazole Sodium 40 MG Q5H 01/03 2345 DC 01/05 Sodium Chloride 100 ML IV 0601 Sodium Chloride 1,000 ML Q13H 01/03 1800 DC 01/05 IV 0106 Last 24 Hrs of Lab/Ranjeet Results Last 24 Hrs of Labs/Mics: Laboratory Tests 01/05/17 0618: Anion Gap 7, Estimated GFR 52 L, BUN/Creatinine Ratio 25.4 H, CBC w Diff NO MAN DIFF REQ, RBC 2.74 L, MCV 91.4, MCH 31.1 H, RDW 16.6 H, MPV 7.9, Gran % 53.5, Lymphocytes % 23.2, Monocytes % 14.0 H, Eosinophils % 8.6 H, Basophils % 0.7, Absolute Granulocytes 3.2, Absolute Lymphocytes 1.4, Absolute Monocytes 0.8 H, Absolute Eosinophils 0.5, Absolute Basophils 0, PUBS MCHC 34.0 01/04/17 2205: CBC w Diff NO MAN DIFF REQ, RBC 2.71 L, MCV 91.2, MCH 30.4, RDW 17.0 H, MPV 7.6, Gran % 48.7, Lymphocytes % 28.2, Monocytes % 14.2 H, Eosinophils % 8.5 H, Basophils % 0.4, Absolute Granulocytes 2.8, Absolute Lymphocytes 1.6, Absolute Monocytes 0.8 H, Absolute Eosinophils 0.5, Absolute Basophils 0, PUBS MCHC 33.3 01/04/17 1255: CBC w Diff NO MAN DIFF REQ, RBC 2.77 L, MCV 91.2, MCH 31.0, RDW 16.8 H, MPV 7.9, Gran % 55.6, Lymphocytes % 23.4, Monocytes % 12.6 H, Eosinophils % 7.8 H, Basophils % 0.6, Absolute Granulocytes 3.6, Absolute Lymphocytes 1.5, Absolute Monocytes 0.8 H, Absolute Eosinophils 0.5, Absolute Basophils 0, PUBS MCHC 34.0 Assessment/Plan Assessment: Patient is 86-year-old gentleman with past medical history significant for severe degenerative joint disease, spinal stenosis on NSAIDs which are on hold, questionable syncope, seizure disorder, hypertension, dyslipidemia, benign prostatic hypertrophy, CK D, recurrent UTIs with indwelling Chavez's catheter, paroxysmal atrial fibrillation on Eliquis which is on hold since yesterday, dementia was brought in from [facility] yesterday after noticing melena and low H&H. Patient was admitted on general medical floor and following issues will be addressed Problem #1 acute anemia with low H&H most likely upper GI bleed * Patient underwent EGD that did show 2 adjacent clean-based prepyloric antral gastric ulcers, 1 cm & 8 mm, respectively, symmetrical and benign-appearing, without any clot or visible vessel. As the antral gastric ulcers were organizing decision was made not to directed biopsy * IV PPI has been discontinued and started the patient on omeprazole 40 mg twice a day * We'll continue with CBC Q12 for the next 24 hours, monitor for any recurrence of bleeding and notify GI * H&H remained stable at this time Problem #2: Thrombocytopenia * Secondary to dilutional effect in the setting of 2 PRBC transfusions * Continue to monitor * No pharmacological anticoagulation Problem #3: Acute on chronic CKD * Partly attributable to acute blood loss anemia with decreased renal perfusion * Interval improvement over the past 48 hours * Continue to monitor for now with avoidance of nephrotoxic agent Problem 4: Chronic back pain with spinal stenosis * Tylenol when necessary for pain management * Pain pathway score 0-2 Problem 5: History of hypertension, hyperlipidemia * Blood pressure stable at this time * Discontinue IV fluids * Restarting antihypertensive as blood pressure tolerates Problem #5: A. fib previously on Eliquis * The setting of GI bleed with ulcers as indicated above discussion has already been had between the fruit loader machine operator Dr. Perkins and do all operator Dr. Mckinney. The plan is for holding off Eliquis and aspirin for the next 2 months in the setting of GI bleed and history of falls Problem #6 history of dementia * We continued his home dose of Aricept Problem #7 history of recurrent UTIs on chronic indwelling catheter * Patient remain on Chavez's catheter during hospital stay Problem #8: Productive cough * Mucinex for mucolytic therapy Alps for DVT prophylaxis Patient is DNI DNR Problem List: 1. GI bleed 2. Gastric ulcer 3. Acute blood loss anemia 4. Thrombocytopenia 5. Acute kidney injury superimposed on chronic kidney disease 6. Atrial fibrillation Pain Ratin Pain Location: Low back Pain Goal: Pain 4 or less Pain Plan: Tylenol Tomorrow's Labs & Rationales: CBC - following acute blood loss anemia BEP: Monitoring renal function DVT/Prophylaxis: mechanical Consulting Request: Consulting Specialty: Cardiology Discharge Plan Discharge Disposition: STR/NH Stable for Discharge? No Anticipated Discharge (Day): tomorrow If Discharged Today/In 24 Hrs: enter antc discharge ord, W-10/discharge paper done, DC summary done, CMR done
[2017-01-05 07:54] LABS: ABSOLUTE BASOPHIL COUNT 0 /CUMM (0.0-0.2); ABSOLUTE EOSINOPHIL COUNT 0.5 /CUMM (0.0-0.7); ABSOLUTE GRANULOCYTE CT 3.2 /CUMM (1.4-6.5); ABSOLUTE LYMPH COUNT 1.4 /CUMM (1.2-3.4); ABSOLUTE MONOCYTE COUNT 0.8 /CUMM (0.10-0.60); BASOPHIL % 0.7 % (0.0-2.0); EOSINOPHIL % 8.6 % (0-5); GRANULOCYTE % 53.5 % (42.2-75.2); MEAN CORPUSCULAR HGB 31.1 PG (27.0-31.0); MEAN CORPUSCULAR VOLUME 91.4 FL (80.0-94.0); MEAN PLATELET VOLUME 7.9 FL (7.4-10.4); RBC DISTRIBUTION WIDTH 16.6 % (11.5-14.5); RED BLOOD CELL CT 2.74 /CUMM (4.70-6.10); WHITE BLOOD CELL COUNT 5.9 /CUMM (4.8-10.8)
[2017-01-05 09:12] LABS: PLATELET COUNT 94 /CUMM (130-400)
--- NOTE | 2017-01-05 22:02 | PN- Gastroenterology ---
Assessment/Plan Assessment/Recommendations: 86 y/o male, HTN/HLD/OBS (on Aricept)/PAF on Eliquis (reportedly held on 2016; currently in NSR)/DNR DNI, history of mechanical falls, ? 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 He previously lived at [facility], but was moved to [facility] in 11/2016, due to recurrent falls. He was BIBA to [facility] from [facility] 01/03, arriving at 1:26 p.m., for low H/H 6.7/19.7, respectively. The patient's stool appeared dark and was OB-positive at [facility]. He does not take any iron or Pepto-Bismol. He appeared pale and more lethargic than normal, with some weakness & fatigue. Aside from Mobic, he denied any additional NSAIDs or aspirin. The patient is a poor historian & it is difficult for him to qualify or quantify the above. He is O x 1 (person). *Upon arrival to the ER, BP 133/63, P 67, R 20, T 97, O2 sat RA 99%. He is in the midst of his 1st unit PRBC. He denies any previous transfusions. He claimed he had a normal colonoscopy in [place], [place], in the late . He has never had an EGD. Family history is unobtainable. He denied any cigarette smoking, but did admit to a rare beer. Although the patient is a poor historian, he denied any hematemesis, nausea, vomiting, GERD, odynophagia, dysphagia, early satiety, abdominal pain, chest pain, shortness of breath, diarrhea, constipation, obstipation, or rectal bleeding. His weight is stable and his appetite is good. He denied any gross hematuria or hemoptysis. He denied any fevers, chills, symptoms of URI or UTI, although he does have a chronic indwelling Chavez since 2016, replaced Q month. According to the W-10, there is no documentation of any recent abdominal trauma. He is currently NPO. I advised an IV Protonix bolus 80 mg , followed by an IV Protonix drip at 8 mg/hr. 12/20/2016: *WBC 7.3, H/H 11.1/32.5. normal MCV 92.6, normal RDW 14.5, PLT 197, BUN/Cr 33/1.6, GFR 41 01/03/2017: *Outpatient labs- WBC 6.7, H/H 6.7/19.7, MCV 93.2, RDW 14.9, PLT 122 , glucose 115, BUN/Cr 61/1.5, GFR 44, normal electrolytes, albumin 2.8, globulin 2.9, TBil 0.2, alk phos 55, AST 13, ALT 11 01/03/2017: *Admission labs- WBC 6.6, H/H 7.1/21.1, MCV 92.8, RDW 14.7, PLT 138, PT 12.7, INR 1.21, PTT 42, glucose 110, BUN/Cr 61/1.5, GFR 44, Na 142, K 5.o, HCO3 25, AG 11, nl lactate 1.3, Ca2+ 9.1, albumin 3.1, globulin 3.0, TBil 0.2, alk phos 59, AST 14, ALT 14, troponin .04. 01/03/2017: BC x 2- sent. 01/03/2017: EKG- NSR @ 65, borderline LAD, flat T in III & L. 01/03/2017: XR PORTABLE CHEST- 1. No active cardiopulmonary disease. There is no significant interim change. ASHD of aortic knob. 2. There is chronic mild to moderate right base linear scar/subsegmental atelectasis. *Clinically, most likely, the patient had an UGI bleed (above the Ligament of Treitz), with elevated BUN/Cr ratio & history of melena (currently brown, OB- positive on my 01/03/2017: digital exam). Eliquis was held as of 01/03/2017. The Mobic use is noted. Non-smoker. Rare beer. There is nothing by history to suggest cirrhosis, although he does have borderline thrombocytopenia. There is a questionable history of melanoma & SC Ca skin (doubt met). Rule out PUD vs. angiodysplasia vs. Dieulafoy. Doubt neoplasm. *Additionally, one might have to reconsider (if at all), resuming A/C therapy in a patient with OBS & a history of mechanical falls & ? syncope. He has PAF & is currently in NSR. I had a long discussion with the patient's daughter, Shirley Lopez, who redirected me to her (the patient's S-I-L), Luiz Lopez, who is the patient's POA. I called him on his cell at . The patient is DNR/ DNI, but can be resuscitated and/or intubated if needed, during a procedure. * The risks and benefits of EGD were discussed with him, and he wishes to proceed. Witnessed telephone informed consent for EGD was obtained from the patient's POA, Luiz Lopez, on 01/03/2017. If the EGD is negative, will discuss prep for colonoscopy. The patient is being admitted to General Medicine as per the ER , as he is hemodynamically stable. *As of 01/04/2017, the patient remained pleasantly demented. He had no complaints & was hemodynamically stable. He received 1 unit PRBC. He remained on a Protonix drip. He was NPO for EGD. There had been no overt GI bleeding or melena overnight. *Eliquis had been held as of 01/03/2017, as has Mobic. He denied any chest pain, shortness of breath, or abdominal pain. It was difficult to get any further history from him. 01/04/2017: *EGD to D2 with biopsies- 1. 2 adjacent clean-based prepyloric antral gastric ulcers, 1 cm & 8 mm, respectively, symmetrical and benign-appearing, without any clot or visible vessel. As the antral gastric ulcers were organizing, a decision was made not to directly biopsy them, at present. Random gastric biopsies were obtained, to rule out H. pylori: (Specimen A- antrum, Specimen B- fundus). 2. 1 cm hiatal hernia pouch, from 35-36 cm. Z line at 35 cm. ADDENDUM: 01/05/2017- A. GASTRIC ANTRUM, RANDOM BIOPSY: MILD CHRONIC INFLAMMATION, AND NODULAR MUSCULARIS MUCOSA. GIEMSA STAIN IS NEGATIVE FOR HELICOBACTER-TYPE STRUCTURES. NEGATIVE FOR EVIDENCE OF MALIGNANCY. B. GASTRIC FUNDUS, RANDOM BIOPSY: MILD CHRONIC AND FOCAL MILD ACUTE INFLAMMATION. GIEMSA STAIN IS NEGATIVE FOR HELICOBACTER-TYPE STRUCTURES. NEGATIVE FOR EVIDENCE OF MALIGNANCY. Dictated by: SAE SRINIVASAN,MARII Barrera (*Message left with patient's S-I-L/POA, Luiz Lopez, on 01/05/2017 at 10:17 p.m. at , regarding the benign, HP-negative random gastric bxs) *As of 01/05/2017, the patient is hemodynamically stable (actually hypertensive) , and afebrile. He has received a total of 2 units PRBC, last on 01/04/2017. His IV Protonix drip has been switched to Omeprazole 40 mg po BID. He is tolerating a regular diet uneventfully. He remains off Mobic & Eliquis. He is pleasantly demented and denies any complaints. *A stool Ag for H. pylori was requested, but not yet sent. *01/04/2017: Random gastric biopsies- negative for H. pylori 01/05/2013: WBC 5.9, H/H 8.5/25 (*post 2u PRBC), PLT 94 (chronic); BUN/Cr 33/1.3 , GFR 52 *SUGGEST: *Check stool Ag for H. pylori (random gastric biopsies- H.pylori negative). *No NSAIDS. *Eliquis is to remain on hold for now, per discussion with Dr. Mckinney ( high ROCK score, but history of falls, OBS & recent UGI bleed/). *Continue Omeprazole 40 mg po BID, at least until repeat EGD of 02/2017. Continue to feed patient as tolerated (2g Na+ heart healthy diet with aspiration precautions). Check CBC daily as inpatient. Keep Hgb > 8 (hx probable ASHD with PAF). Transfuse as needed. O2 as needed. *As an upper GI source was found, especially with elevated BUN/Cr ratio, will defer colonoscopy. The plan is to hold Eliquis x 2 months and *repeat an EGD in 02/2017 to document healing of the gastric ulcers. *If they persist, they will need direct biopsies to rule out the unlikely possibility of malignancy. Even if the patient had gastric cancer, he is not a surgical candidate, as per his family's wishes. If the gastric ulcers have healed at that point, then cardiology will have to reassess resuming Eliquis, balanced by the patient's fall risk & OBS. The above findings and recommendations were previously discussed with the patient's son-in-law/POA, Luiz Lopez, at , postoperatively, on 01/04/2017, and he concurred with this plan. I also previously spoke with Dr. Mckinney and the medical house staff postoperatively, and left a message with Dr. Bryant, regarding the above. *The case was again discussed with the medical house staff on 01/05/2017, and I left another message with the patient's S-I-L/POA, Luiz Lopez, on 01/05/2017 at 10:17 p.m. at , regarding the benign, HP-negative random gastric bxs). *The patient is stable for discharge from GI perspective. *Further inpatient GI follow up as needed. *The patient's POA has my office number to arrange for follow-up EGD, as above. Problem List: 1. Melena 2. Anemia 3. GI bleed 4. NSAID-associated gastropathy 5. Anticoagulant adverse reaction 6. Dementia Subjective Subjective: 01/04/2017: *EGD to D2 with biopsies- 1. 2 adjacent clean-based prepyloric antral gastric ulcers, 1 cm & 8 mm, respectively, symmetrical and benign-appearing, without any clot or visible vessel. As the antral gastric ulcers were organizing, a decision was made not to directly biopsy them, at present. Random gastric biopsies were obtained, to rule out H. pylori: (Specimen A- antrum, Specimen B- fundus). 2. 1 cm hiatal hernia pouch, from 35-36 cm. Z line at 35 cm. ADDENDUM: 01/05/2017- A. GASTRIC ANTRUM, RANDOM BIOPSY: MILD CHRONIC INFLAMMATION, AND NODULAR MUSCULARIS MUCOSA. GIEMSA STAIN IS NEGATIVE FOR HELICOBACTER-TYPE STRUCTURES. NEGATIVE FOR EVIDENCE OF MALIGNANCY. B. GASTRIC FUNDUS, RANDOM BIOPSY: MILD CHRONIC AND FOCAL MILD ACUTE INFLAMMATION. GIEMSA STAIN IS NEGATIVE FOR HELICOBACTER-TYPE STRUCTURES. NEGATIVE FOR EVIDENCE OF MALIGNANCY. Dictated by: SAE SRINIVASAN,MARII Barrera (*Message left with patient's S-I-L/POA, Luiz Lopez, on 01/05/2017 at 10:17 p.m. at , regarding the benign, HP-negative random gastric bxs) *As of 01/05/2017, the patient is hemodynamically stable (actually hypertensive) , and afebrile. He has received a total of 2 units PRBC, last on 01/04/2017. His IV Protonix drip has been switched to Omeprazole 40 mg po BID. He is tolerating a regular diet uneventfully. He remains off Mobic & Eliquis. He is pleasantly demented and denies any complaints. *A stool Ag for H. pylori was requested, but not yet sent. *01/04/2017: Random gastric biopsies- negative for H. pylori 01/05/2013: WBC 5.9, H/H 8.5/25 (*post 2u PRBC), PLT 94 (chronic); BUN/Cr 33/1.3 , GFR 52 Review of Systems: Full 14 point review of systems otherwise difficult to obtain, but essentially negative (poor historian). Review of Systems Constitutional: Reports: weakness- improving. Denies: chills, diaphoresis, fever, malaise, unexplained weight loss. EENTM: Reports: hearing changes. Denies: blurred vision, double vision, visual changes, eye pain, eye drainage, eye tearing, icterus, ear discharge, ear pain, ear redness, nasal congestion, epistaxis, nasal pain, throat pain, throat swelling, mouth pain, tooth pain. Cardiovascular: Denies: chest pain, edema, orthopena, palpitations, peripheral edema, syncope. Respiratory: Denies: cough, hemoptysis, orthopnea, short of breath, sputum production, stridor, wheezing. GI: Reports: melena (possibly as outpatient; none as inpatient). Denies: abdominal pain, bloating, constipation, diarrhea, distention, bowel incontinence, nausea, bloody stool, changes in stool, vomiting, steatorrhea. Genitourinary: Reports: frequency, hesitation. Denies: no symptoms (indwelling Chavez), discharge, dysuria, hematuria, nocturia, pain, urgency. Musculoskeletal: Reports: back pain, joint pain (right TKR/DJD). Denies: gout, joint swelling, muscle pain, muscle stiffness, neck pain. Skin: Denies: cysts, change in skin color, change in hair/nails, dryness, erythema, jaundice, lesions, lymphangitis, lumps, moles, rash. Neurological/Psychological: Reports: pleasantly confused, dementia w/o change; weakness- improving. Denies: anxiety, ataxia, cognitive dysfunction, depressed, emotional problems, headache, numbness, paresthesia, pre-existing deficit, petit mal seizures, tingling, tremors, tonic-clonic seizures, unable to move lower ext, unable to move upper ext. Hematologic/Endocrine: Denies: bruising, bleeding, polyuria, polydipsia. Immunologic/Allergic: Denies: splenectomy, HIV/AIDS, lymphadenopathy. All Other Systems: Reviewed and Negative Objective Vital Signs and I&Os Vital Signs Date Time Temp Pulse Resp B/P B/P Pulse O2 O2 Flow FiO2 Mean Ox Delivery Rate 01/05 1935 178/78 01/05 1840 186/100 01/05 1831 166/80 01/05 1530 166/80 01/05 1428 97.8 70 20 180/80 98 Room Air 01/05 1402 180/80 01/05 0700 98.0 64 20 156/61 100 Room Air 01/04 2240 98.4 72 20 124/58 95 Room Air Intake & Output 01/05 1600 01/05 0400 01/04 1600 01/04 0400 01/03 1600 01/03 0400 Intake Total 1740 1020 950 Output Total 092 865 2733 950 20 Balance 840 620 -100 -950 -20 Intake, Blood 350 Product Intake, IV 1100 300 600 Intake, Oral 640 720 0 Number 1 0 Bowel Movements Output, Urine 578 871 9721 950 20 Patient 188 lb 170 lb Weight Weight Reported by Patient Measurement Method Physical Exam: Well-developed, well-nourished, elderly male, in no apparent distress. Sclera anicteric. Conjunctiva pinker. Oropharynx clear. No oral thrush. No aphthous ulcers. There is no adenopathy, thyromegaly, or JVD. No peripheral stigmata of inflammatory bowel disease or chronic liver disease on exam. No spiders on the anterior chest wall. No gynecomastia. No CVA tenderness. Lungs: clear to A&P, with slight decreased BS at the right base. Heart exam: regular rate rhythm, S1 and S2, with soft flow murmur. Abdominal exam: normal bowel sounds, soft belly, nontender, without guarding or rebound. No mass. No organomegaly. No fluid shift. No pulsatile mass. No epigastric bruit. No abdominal scars. Digital rectal exam: (*done by myself in the ER 01/03/2017- brown stool, OB-positive, without melena or BRBPR. No mass. No external hemorrhoids or fissure. No perianal disease. Smooth enlarged prostate without nodule, but somewhat limited exam. Extremities: without C, C, or E. No palpable cords. + DJD. Post right TKR (healed scar). Postop scar L- spine. No palmar erythema. No Dupuytren's contractures. Distal pulses 1+ bilaterally. DTRs 1+ bilaterally. Alert and oriented x 1 (person). Pleasantly confused. Motor 5/5 B/L. A detailed exam for peripheral neuropathy was deferred. No tremor. No asterixis. Current Medications: Current Medications Sig/Alcon Start time Last Medication Dose Route Stop Time Status Admin Acetaminophen 650 MG Q6P PRN 01/03 1615 AC PO Acetaminophen 1,000 MG Q6P PRN 01/03 1615 AC IV Atorvastatin Calcium 10 MG 1700 05/ 1700 AC 05 PO 1839 Clonazepam 1 MG QPM /08 2200 AC 05/10 PO 01/10 2159 2044 Divalproex Sodium 250 MG TID 01/03 1710 AC 05/ PO 2043 Donepezil HCl 10 MG DAILY / 1000 AC 05 PO 0920 Guaifenesin 600 MG Q12 01/05 1000 AC 05/10 PO 2043 Lisinopril 5 MG ONCE ONE 01/05 1600 DC 05/10 PO 01/05 1601 1831 Nystatin 1 DIVINA BID 01/04 1000 AC 01/05 TOP 2045 Omeprazole 40 MG BID 01/05 1000 AC 05/10 PO 2043 Oxycodone HCl 5 MG Q6P PRN 08 1615 AC PO Pantoprazole Sodium 40 MG Q5H / 2345 DC 05/10 Sodium Chloride 100 ML IV 0601 Sodium Chloride 1,000 ML Q13H 01/03 1800 DC 05/10 IV 0106 Results Pertinent Lab Results: Laboratory Tests 01/05 01/04 0618 2205 Chemistry Sodium (137 - 145 mmol/L) 143 Potassium (3.5 - 5.1 mmol/L) 4.1 Chloride (98 - 107 mmol/L) 113 H Carbon Dioxide (22 - 30 mmol/L) 23 Anion Gap (5 - 16) 7 BUN (9 - 20 mg/dL) 33 H Creatinine (0.7 - 1.2 mg/dL) 1.3 H Estimated GFR (>60 ml/min) 52 L BUN/Creatinine Ratio (7 - 25 %) 25.4 H Hematology CBC w Diff NO MAN DIFF REQ NO MAN DIFF REQ WBC (4.8 - 10.8 /CUMM) 5.9 5.8 RBC (4.70 - 6.10 /CUMM) 2.74 L 2.71 L Hgb (14.0 - 18.0 G/DL) 8.5 L 8.3 L Hct (42 - 52 %) 25.0 L 24.7 L MCV (80.0 - 94.0 FL) 91.4 91.2 MCH (27.0 - 31.0 PG) 31.1 H 30.4 RDW (11.5 - 14.5 %) 16.6 H 17.0 H Plt Count (130 - 400 /CUMM) 94 L 99 L MPV (7.4 - 10.4 FL) 7.9 7.6 Gran % (42.2 - 75.2 %) 53.5 48.7 Lymphocytes % (20.5 - 51.1 %) 23.2 28.2 Monocytes % (1.7 - 9.3 %) 14.0 H 14.2 H Eosinophils % (0 - 5 %) 8.6 H 8.5 H Basophils % (0.0 - 2.0 %) 0.7 0.4 Absolute Granulocytes (1.4 - 6.5 /CUMM) 3.2 2.8 Absolute Lymphocytes (1.2 - 3.4 /CUMM) 1.4 1.6 Absolute Monocytes (0.10 - 0.60 /CUMM) 0.8 H 0.8 H Absolute Eosinophils (0.0 - 0.7 /CUMM) 0.5 0.5 Absolute Basophils (0.0 - 0.2 /CUMM) 0 0 PUBS MCHC (33.0 - 37.0 G/DL) 34.0 33.3 01/04 05/09 1255 0630 Chemistry Sodium (137 - 145 mmol/L) 143 Potassium (3.5 - 5.1 mmol/L) 4.9 Chloride (98 - 107 mmol/L) 112 H Carbon Dioxide (22 - 30 mmol/L) 24 Anion Gap (5 - 16) 7 BUN (9 - 20 mg/dL) 46 H Creatinine (0.7 - 1.2 mg/dL) 1.4 H Estimated GFR (>60 ml/min) 48 L BUN/Creatinine Ratio (7 - 25 %) 32.9 H Hematology CBC w Diff NO MAN DIFF REQ NO MAN DIFF REQ WBC (4.8 - 10.8 /CUMM) 6.4 5.5 RBC (4.70 - 6.10 /CUMM) 2.77 L 2.32 L Hgb (14.0 - 18.0 G/DL) 8.6 L 7.3 *L Hct (42 - 52 %) 25.3 L 21.5 L MCV (80.0 - 94.0 FL) 91.2 92.5 MCH (27.0 - 31.0 PG) 31.0 31.3 H RDW (11.5 - 14.5 %) 16.8 H 16.1 H Plt Count (130 - 400 /CUMM) 103 L 102 L MPV (7.4 - 10.4 FL) 7.9 7.9 Gran % (42.2 - 75.2 %) 55.6 53.7 Lymphocytes % (20.5 - 51.1 %) 23.4 22.9 Monocytes % (1.7 - 9.3 %) 12.6 H 13.1 H Eosinophils % (0 - 5 %) 7.8 H 9.4 H Basophils % (0.0 - 2.0 %) 0.6 0.9 Absolute Granulocytes (1.4 - 6.5 /CUMM) 3.6 2.9 Absolute Lymphocytes (1.2 - 3.4 /CUMM) 1.5 1.3 Absolute Monocytes (0.10 - 0.60 /CUMM) 0.8 H 0.7 H Absolute Eosinophils (0.0 - 0.7 /CUMM) 0.5 0.5 Absolute Basophils (0.0 - 0.2 /CUMM) 0 0 PUBS MCHC (33.0 - 37.0 G/DL) 34.0 33.9 08 01/03 2055 1632 Chemistry Lactic Acid Cancelled Hematology CBC w Diff NO MAN DIFF REQ WBC (4.8 - 10.8 /CUMM) 7.7 RBC (4.70 - 6.10 /CUMM) 2.57 L Hgb (14.0 - 18.0 G/DL) 8.1 L Hct (42 - 52 %) 23.7 L MCV (80.0 - 94.0 FL) 92.0 MCH (27.0 - 31.0 PG) 31.5 H RDW (11.5 - 14.5 %) 15.9 H Plt Count (130 - 400 /CUMM) 118 L MPV (7.4 - 10.4 FL) 7.4 Gran % (42.2 - 75.2 %) 52.5 Lymphocytes % (20.5 - 51.1 %) 26.9 Monocytes % (1.7 - 9.3 %) 13.9 H Eosinophils % (0 - 5 %) 6.1 H Basophils % (0.0 - 2.0 %) 0.6 Absolute Granulocytes (1.4 - 6.5 /CUMM) 4.0 Absolute Lymphocytes (1.2 - 3.4 /CUMM) 2.1 Absolute Monocytes (0.10 - 0.60 /CUMM) 1.1 H Absolute Eosinophils (0.0 - 0.7 /CUMM) 0.5 Absolute Basophils (0.0 - 0.2 /CUMM) 0 PUBS MCHC (33.0 - 37.0 G/DL) 34.2 01/03 1341 Chemistry Sodium (137 - 145 mmol/L) 142 Potassium (3.5 - 5.1 mmol/L) 5.0 Chloride (98 - 107 mmol/L) 105 Carbon Dioxide (22 - 30 mmol/L) 25 Anion Gap (5 - 16) 11 BUN (9 - 20 mg/dL) 61 H Creatinine (0.7 - 1.2 mg/dL) 1.5 H Estimated GFR (>60 ml/min) 44 L BUN/Creatinine Ratio (7 - 25 %) 40.7 H Glucose (65 - 99 mg/dL) 110 H Lactic Acid (0.7 - 2.1 mmol/L) 1.3 Calcium (8.4 - 10.2 mg/dL) 9.1 Total Bilirubin (0.2 - 1.3 mg/dL) 0.2 AST (17 - 59 U/L) 14 L ALT (21 - 72 U/L) 14 L Alkaline Phosphatase (< 127 U/L) 59 Troponin I (<0.11 ng/ml) 0.04 Total Protein (6.3 - 8.2 g/dL) 6.1 L Albumin (3.5 - 5.0 g/dL) 3.1 L Globulin (1.9 - 4.2 gm/dL) 3.0 Albumin/Globulin Ratio (1.1 - 2.2 %) 1.0 L Coagulation PT (9.4 - 12.5 SEC) 12.7 H INR (0.90 - 1.17) 1.21 H APTT (25 - 37 SEC) 42 H Hematology CBC w Diff NO MAN DIFF REQ WBC (4.8 - 10.8 /CUMM) 6.6 RBC (4.70 - 6.10 /CUMM) 2.28 L Hgb (14.0 - 18.0 G/DL) 7.1 *L Hct (42 - 52 %) 21.1 L MCV (80.0 - 94.0 FL) 92.8 MCH (27.0 - 31.0 PG) 31.4 H RDW (11.5 - 14.5 %) 14.7 H Plt Count (130 - 400 /CUMM) 138 MPV (7.4 - 10.4 FL) 7.8 Gran % (42.2 - 75.2 %) 58.1 Lymphocytes % (20.5 - 51.1 %) 23.3 Monocytes % (1.7 - 9.3 %) 13.9 H Eosinophils % (0 - 5 %) 3.8 Basophils % (0.0 - 2.0 %) 0.9 Absolute Granulocytes (1.4 - 6.5 /CUMM) 3.8 Absolute Lymphocytes (1.2 - 3.4 /CUMM) 1.5 Absolute Monocytes (0.10 - 0.60 /CUMM) 0.9 H Absolute Eosinophils (0.0 - 0.7 /CUMM) 0.3 Absolute Basophils (0.0 - 0.2 /CUMM) 0.1 PUBS MCHC (33.0 - 37.0 G/DL) 33.8 Imaging/Other Studies: 01/03/2017: EKG- NSR @ 65, borderline LAD, flat T in III & L. 01/03/2017: XR PORTABLE CHEST- 1. No active cardiopulmonary disease. There is no significant interim change. ASHD of aortic knob. 2. There is chronic mild to moderate right base linear scar/subsegmental atelectasis. 01/04/2017: *EGD to D2 with biopsies- 1. 2 adjacent clean-based prepyloric antral gastric ulcers, 1 cm & 8 mm, respectively, symmetrical and benign-appearing, without any clot or visible vessel. As the antral gastric ulcers were organizing, a decision was made not to directly biopsy them, at present. Random gastric biopsies were obtained, to rule out H. pylori: (Specimen A- antrum, Specimen B- fundus). 2. 1 cm hiatal hernia pouch, from 35-36 cm. Z line at 35 cm. ADDENDUM: 01/05/2017- A. GASTRIC ANTRUM, RANDOM BIOPSY: MILD CHRONIC INFLAMMATION, AND NODULAR MUSCULARIS MUCOSA. GIEMSA STAIN IS NEGATIVE FOR HELICOBACTER-TYPE STRUCTURES. NEGATIVE FOR EVIDENCE OF MALIGNANCY. B. GASTRIC FUNDUS, RANDOM BIOPSY: MILD CHRONIC AND FOCAL MILD ACUTE INFLAMMATION. GIEMSA STAIN IS NEGATIVE FOR HELICOBACTER-TYPE STRUCTURES. NEGATIVE FOR EVIDENCE OF MALIGNANCY. Dictated by: SAE SRINIVASAN,MARII Barrera (*Message left with patient's S-I-L/POA, Luiz Lopez, on 01/05/2017 at 10:17 p.m. at , regarding the benign, HP-negative random gastric bxs)
[2017-01-06 01:39] VITALS: BP 158/76
[2017-01-06 06:04] VITALS: BP 150/72
--- NOTE | 2017-01-06 07:26 | PN- Housestaff ---
See Addendum Subjective Follow-up For: GI bleed Clean based gastric ulcers Acute blood loss anemia Thrombocytopenia Acute on chronic CKD Complaints: mild productive cough Tele-Events Since Last Visit: No telemetry monitoring Subjective: Interval history: Overnight there were no acute events. This morning Mr. Johnson states that he feels fine and is ready to be discharged. He does have a noticeable cough with phlegm that has been present for the past 2 days. He does report some mild low back discomfort this morning. He denies any headache, dizziness, chest pain, shortness breath, palpitations, nausea, abdominal pain, fevers or chills. Review of Systems Constitutional: Reports: see HPI. EENTM: Reports: no symptoms. Cardiovascular: Reports: no symptoms. Respiratory: Reports: see HPI. Gastrointestinal: Reports: no symptoms. Musculoskeletal: Reports: see HPI. Objective Last 24 Hrs of Vital Signs/I&O Vital Signs Date Time Temp Pulse Resp B/P B/P Pulse O2 O2 Flow FiO2 Mean Ox Delivery Rate 01/06 0604 98.2 63 18 150/72 95 Room Air 01/06 0139 98.2 74 22 158/76 95 Room Air 01/05 2352 69 170/60 01/05 2246 98.5 69 20 170/60 95 Room Air 01/05 2040 154/70 01/05 1935 178/78 01/05 1840 186/100 01/05 1831 166/80 01/05 1530 166/80 01/05 1428 97.8 70 20 180/80 98 Room Air 01/05 1402 180/80 Intake & Output 01/06 1600 01/06 0800 01/06 0000 Intake Total 120 240 Output Total 700 600 Balance -580 -360 Intake, Oral 120 240 Number 0 Bowel Movements Output, Urine 700 600 Physical Exam General Appearance: Alert, Cooperative, No Acute Distress Skin: No Breakdown Skin Temp/Moisture Exam: Warm/Dry HEENT: EOMI, mucous membranes slightly dry Neck: no tenderness to palpation of the cervical and submental lymph nodes Cardiovascular: Regular Rate, Normal S1, Normal S2 Lungs: Normal Air Movement, expiratory rhonchi present in the upper lung lion Abdomen: Normal Bowel Sounds, Soft, No Tenderness Extremities: No Edema, Normal Pulses Vascular: Pulses Symmetrical Current Medications: Current Medications Sig/Alcon Start time Last Medication Dose Route Stop Time Status Admin Acetaminophen 650 MG Q6P PRN 01/03 1615 AC PO Acetaminophen 1,000 MG Q6P PRN 01/03 1615 AC IV Atorvastatin Calcium 10 MG 1700 01/04 1700 AC 01/05 PO 1839 Clonazepam 1 MG QPM 01/03 2200 AC 01/05 PO 01/10 215 204 Divalproex Sodium 250 MG TID 01/03 1710 AC 01/05 PO 2043 Donepezil HCl 10 MG DAILY 01/04 1000 AC 01/05 PO 0920 Guaifenesin 600 MG Q12 01/05 1000 AC 01/05 PO 204 Hydralazine HCl 10 MG ONCE ONE 01/05 2315 DC 01/05 PO 01/05 2316 2352 Lisinopril 5 MG ONCE ONE 01/05 1600 DC 01/05 PO 01/05 1601 1831 Nystatin 1 DIVINA BID 01/04 1000 AC 01/05 TOP 2045 Omeprazole 40 MG BID 01/05 1000 AC 01/05 PO 204 Oxycodone HCl 5 MG Q6P PRN 01/03 1615 AC PO Pantoprazole Sodium 40 MG Q5H 01/03 2345 DC 01/05 Sodium Chloride 100 ML IV 0601 Sodium Chloride 1,000 ML Q13H 01/03 1800 DC 01/05 IV 0106 Last 24 Hrs of Lab/Ranjeet Results Last 24 Hrs of Labs/Mics: Laboratory Tests 01/06/17 0634: Anion Gap 11, Estimated GFR 52 L, BUN/Creatinine Ratio 19.2, CBC w Diff NO MAN DIFF REQ, RBC 2.84 L, MCV 92.2, MCH 31.4 H, RDW 16.2 H, MPV 8.0, Gran % 57.5, Lymphocytes % 18.8 L, Monocytes % 15.5 H, Eosinophils % 7.8 H, Basophils % 0.4, Absolute Granulocytes 3.7, Absolute Lymphocytes 1.2, Absolute Monocytes 1.0 H, Absolute Eosinophils 0.5, Absolute Basophils 0, PUBS MCHC 34.1 Assessment/Plan Assessment: Patient is 86-year-old gentleman with past medical history significant for severe degenerative joint disease, spinal stenosis on NSAIDs which are on hold, questionable syncope, seizure disorder, hypertension, dyslipidemia, benign prostatic hypertrophy, CK D, recurrent UTIs with indwelling Chavez's catheter, paroxysmal atrial fibrillation on Eliquis which is on hold since yesterday, dementia was brought in from [facility] yesterday after noticing melena and low H&H. Patient was admitted on general medical floor and following issues will be addressed Problem #1 acute anemia with low H&H most likely upper GI bleed * Patient underwent EGD that did show 2 adjacent clean-based prepyloric antral gastric ulcers, 1 cm & 8 mm, respectively, symmetrical and benign-appearing, without any clot or visible vessel. As the antral gastric ulcers were organizing decision was made not to directed biopsy * H&H 8.9/26.1. Stable since transfusion * Plan to discharge the patient on PPI with follow-up with GI * EGD biopsies from Gastric antrum: Mild chronic inflammation and nodular muscularis mucosa. Negative for H. pylori. Negative for evidence of malignancy * EGD biopsies from gastric fundus: Mild chronic and focal mild acute inflammation. Negative for H. pylori. Negative for malignancy * Follow-up repeat EGD in February 2017 Problem #2: Thrombocytopenia * Platelets 99 K * Stable Problem #3: Acute on chronic CKD * Stable at this time: BUN/CR 25/1.3 * Partly attributable to acute blood loss anemia with decreased renal perfusion Problem 4: Chronic back pain with spinal stenosis * Tylenol when necessary for pain management * Pain pathway score 0-2 Problem 5: History of hypertension, hyperlipidemia * Prior to admission the patient was on lisinopril 10 mg daily which was held in the setting of acute GI bleed * Blood pressure was elevated yesterday evening into the 170s for which he received 1 dose of lisinopril 5 mg * BP this morning 150 systolic. Will restart lisinopril 10 mg daily for target BP of less than 150/90 per JNC8 criteria Problem #5: A. fib previously on Eliquis * Patient to be off aspirin and Eliquis for at least 2 months Problem #6 history of dementia * We continued his home dose of Aricept Problem #7 history of recurrent UTIs on chronic indwelling catheter * Patient remain on Chavez's catheter during hospital stay Problem #8: Productive cough * Mucinex for mucolytic therapy Alps for DVT prophylaxis Patient is DNI DNR Problem List: 1. Acute blood loss anemia 2. Gastric ulcer 3. Thrombocytopenia 4. Acute kidney injury superimposed on chronic kidney disease 5. Atrial fibrillation 6. Hypertension Pain Ratin Pain Location: NA Pain Goal: Pain 4 or less Pain Plan: PAin pathway Tomorrow's Labs & Rationales: None required. Stable for discharge Consulting Request: Consulting Specialty: Cardiology Discharge Plan Discharge Disposition: STR/NH Stable for Discharge? Yes Anticipated Discharge (Day): today If Discharged Today/In 24 Hrs: enter [facility] discharge ord, W-10/discharge paper done, DC summary done, CMR done
[2017-01-06 07:44] LABS: ABSOLUTE BASOPHIL COUNT 0 /CUMM (0.0-0.2); ABSOLUTE EOSINOPHIL COUNT 0.5 /CUMM (0.0-0.7); ABSOLUTE GRANULOCYTE CT 3.7 /CUMM (1.4-6.5); ABSOLUTE LYMPH COUNT 1.2 /CUMM (1.2-3.4); BASOPHIL % 0.4 % (0.0-2.0); EOSINOPHIL % 7.8 % (0-5); GRANULOCYTE % 57.5 % (42.2-75.2); HEMATOCRIT 26.1 % (42-52); MEAN CORPUSCULAR HGB 31.4 PG (27.0-31.0); MEAN CORPUSCULAR HGB CONC 34.1 G/DL (33.0-37.0); MEAN CORPUSCULAR VOLUME 92.2 FL (80.0-94.0); PLATELET COUNT 99 /CUMM (130-400); RBC DISTRIBUTION WIDTH 16.2 % (11.5-14.5); RED BLOOD CELL CT 2.84 /CUMM (4.70-6.10); WHITE BLOOD CELL COUNT 6.4 /CUMM (4.8-10.8)
[2017-01-06 12:42] VITALS: BP 160/68
== END 2017-01-06 12:55 | DRG 378 ==
LOC: ERH 13:26 → 2NB 14:33 → ERHI 14:33 → 2NB 14:33 → ENRESERV 22:48 → 2NB 01-04 00:56 → ENPENDDIS 01-06 10:34 → 2NB 01-06 12:55
PROVIDERS: Internal Medicine; Physician Assistant; Student in an Organized Health Care Education/Training Program; ADMIT Internal Medicine
PROC: 30233N1 Transfusion of Nonautologous Red Blood Cells into Peripheral Vein, Percutaneous Approach (ICD-10-PCS; principal; 2017-01-03)
PROC: 0DB68ZX Excision of Stomach, Via Natural or Artificial Opening Endoscopic, Diagnostic (ICD-10-PCS; 2017-01-04)
DX: K92.2 Gastrointestinal hemorrhage, unspecified (principal); K25.9 Gastric ulcer, unspecified as acute or chronic, without hemorrhage or perforation; I48.91 Unspecified atrial fibrillation; F03.90 Unspecified dementia, unspecified severity, without behavioral disturbance, psychotic disturbance, mood disturbance, and anxiety; D62 Acute posthemorrhagic anemia; I12.9 Hypertensive chronic kidney disease with stage 1 through stage 4 chronic kidney disease, or unspecified chronic kidney disease; N18.9 Chronic kidney disease, unspecified; Z79.01 Long term (current) use of anticoagulants; E78.5 Hyperlipidemia, unspecified; K44.9 Diaphragmatic hernia without obstruction or gangrene; Z66 Do not resuscitate
CPT/HCPCS: 2NBP; ERO; 36415; 82436; 86920; 87040; 88305; 88312; 93005; 93010; 96374; 97116-GO; 97161-GP; 97530-GO; J0131; P9016